=== PATIENT | female | born 1945 | race African-American/Black ===

== ENCOUNTER 2016-11-09 01:57 | Inpatient (IN) | payer OTHER ==
--- NOTE | 2016-11-09 02:18 | PDOC ---
History of Present Illness - General Chief Complaint: Nausea/Vomiting Stated Complaint: ABDOMINAL PAIN Time Seen by Provider: 11/09/16 02:06 - History of Present Illness Initial Comments: 11/09/16 02:37 Patient is a 71 year old female with a history of hypertension, hyperlipidemia , diabetes, lupus, GERD, and DVT who presents with acute onset of epigastric abdominal pain with associated nausea, vomiting and diarrhea. The patient reports acute onset of epigastric abdominal pain 1-2 hours ago which awoke her from sleep. She endorsed nausea and non-bilious, non-bloody vomiting as well as diarrhea en route to the ED. She states that she was previously feeling healthy prior to onset of symptoms this evening. She endorses chills, but denies SOB, chest pain, or changes with urination. Past History - Past Medical History Allergies/Adverse Reactions: Allergies Allergy/AdvReac Type Severity Reaction Status Date / Time prochlorperazine edisylate Allergy Intermediate tongue Verified 11/09/16 02:14 [From Compazine] gets heavy prochlorperazine maleate AdvReac Intermediate tongue Verified 11/09/16 02:14 [From Compazine] gets heavy Home Medications: Ambulatory Orders Aspirin [ASA -] 81 mg PO DAILY 05/14/16 Gabapentin 600 mg PO TID 05/14/16 Metformin HCl [Glucophage] 500 mg PO BID 05/14/16 Ondansetron [Zofran Odt -] 4 mg SL TID PRN #21 od.tablet 05/14/16 Oxycodone HCl 10 mg PO PRN 05/14/16 Valsartan [Diovan] 160 mg PO DAILY 05/14/16 Diabetes: Yes GI Disorders: Yes (gerd) HTN: Yes Hypercholesterolemia: Yes Suicide Attempt (Hx): No - Surgical History Orthopedic Surgery: (BILATERAL HIP REPLACEMENT RIGHT SHOULDER) - Immunization History Td Vaccination: (unknown) Immunization Up to Date: Yes - Psycho/Social/Smoking Cessation Hx Anxiety: No Suicidal Ideation: No Smoking Status: Yes Smoking History: Never smoked Years of Tobacco Use: 10 Have you smoked in the past 12 months: No Number of Cigarettes Smoked Daily: 0 If you are a former smoker, when did you quit?: yrs ago Cigars Per Day: 0 Information on smoking cessation initiated: No Hx Alcohol Use: No Drug/Substance Use Hx: No Review of Systems - Review of Systems Constitutional: Yes: Chills. No: Fever Respiratory: No: Cough, Shortness of Breath Cardiac (ROS): No: Chest Pain, Lightheadedness, Palpitations ABD/GI: Yes: Diarrhea, Nausea, Vomiting. No: Constipated : No: Burning, Dysuria Integumentary: No: Rash Neurological: No: Headache, Numbness, Tingling, Weakness *Physical Exam - Vital Signs Last Vital Signs Temp Pulse Resp BP Pulse Ox 98.1 F 101 H 14 142/90 100 11/09/16 02:14 11/09/16 02:14 11/09/16 02:14 11/09/16 02:14 11/09/16 02:14 - Physical Exam Comments: 11/09/16 03:22 General Appearance: Yes: Nourished, Moderate Distress HEENT: No Pharyngeal Erythema, Tonsillar Exudate, Tonsillar Erythema Respiratory/Chest: Lungs Clear, Normal Breath Sounds. No Crackles, Rales, Rhonchi, Wheezing Cardiovascular: Regular Rhythm, Regular Rate. No Murmur, Gallop/S3, Gallop/S4 Gastrointestinal/Abdominal: Normal Bowel Sounds, Soft, Diffuse tenderness to palpation worse in the epigastric and periumbilical regions. No Guarding, Rebound Extremity: Normal Capillary Refill Integumentary: Normal Color, Dry, Warm Neurologic: Fully Oriented, Alert, Normal Mood/Affect, Normal Response Heart Score/ECG Review #1 ECG reviewed & interpreted by me at: 03:32 (Tachycardic to 104. Possible atrial enlargement) General ECG Interpretation: Sinus Rhythm, Normal Intervals, No acute ischemic changes Compared to previous ECG there are: No significant change (05/14/16) ED Treatment Course - LABORATORY CBC & Chemistry Diagram: 11/09/16 02:44 11/09/16 02:44 Medical Decision Making - Medical Decision Making 11/09/16 03:23 Patient is a 71 year old female with a history of hypertension, hyperlipidemia , diabetes, lupus, GERD, and DVT who presents with acute onset of epigastric abdominal pain with associated nausea, vomiting and diarrhea. Differential includes but is not limited to: Sepsis, Perforation, AAA, Pancreatitis, Cholecystitis, metabolic derangement. We will obtain a cbc, cmp, lipase, lactate, blood cultures, UA, urine cultures, troponin, EKG as well as a abdomen/ pelvis CT to evaluate for the etiology of her pain. 11/09/16 04:45 Cbc is unremarkable. Lipase, troponin, EKG are unremarkable. CMP demonstrates a hyponatremia to 125 and a lactate of 3.4 likely due to dehydration. CT chest/ abdomen pelvis preliminarily read by jd edwards consultant radiologist pending official read as: Chest: Slight ectasia of the proximal ascending thoracic aorta at 4.1 cm. No dissection. Lungs are clear of acute disease. Abdomen and pelvis: Negative for abdominal aortic aneurysm or dissection. Atherosclerotic changes of the abdominal aorta are noted. No bowel obstruction free air or free fluid. Negative for colitis. Difficult to evaluate the sigmoid for diverticulitis because it is partially obscured by metal artifact from hip prosthesis. Renal cysts are noted. There is moderate dilatation of the left renal collecting system and ureter. I cannot find a source of obstruction. However, the distal ureters and ureterovesicular junction are obscured by heavy artifact from metallic hip prosthesis. Therefore I cannot evaluate for distal obstructing ureteral stones. There are nonobstructing bilateral renal stones. Cholelithiasis noted. Normal liver. Normal spleen. Normal pancreas. Normal adrenal glands. THIS DOCUMENT HAS BEEN ELECTRONICALLY SIGNED Marck Del Rio MD 11/09/2016 04:34 EST 11/09/16 05:37 We discussed the case with the hospitalist team and we believe that she requires admission for further management. The hospitalist team agreed to accept the patient under Dr. Canela for observation. *DC/Admit/Observation/Transfer Diagnosis at time of Disposition: Hyponatremia, Dehydration - Discharge Dispostion Condition at time of disposition: Guarded Admit: Yes - Referrals Referrals: Gina Fofana MD [Primary Care Provider] -
[2016-11-09] MEDS ORDERED: morphine CARPU-JECT 4 MG/1 ML DISP.SYRIN IVPUSH ONE (02:41)
[2016-11-09] MEDS ORDERED: SODIUM CHLORIDE 1,000 ML IV STA ×2 (02:45→04:25)
[2016-11-09] MEDS ORDERED: ACETAMINOPHEN 1000 MG/100 ML VIAL (NON FORMULARY) IVPB ONE (02:45)
[2016-11-09] MEDS ORDERED: ACETAMINOPHEN INJECTION 100 ML IVPB ONE (02:54)
[2016-11-09] MEDS ORDERED: morphine CARPU-JECT 4 MG/1 ML DISP.SYRIN ONE (02:54)
[2016-11-09 02:57] LABS: MCH 30.9 pg (25.7-33.7); MCHC 35.2 g/dl (32.0-36.0); MEAN CELL VOLUME 87.9 fl (80-96); MEAN PLT VOLUME 7.3 fl (7.5-11.1); PLATELET COUNT 646 K/MM3 (134-434); RDW 16.1 % (11.6-15.6); WHITE BLOOD COUNT 9.1 K/mm3 (4.0-10.0)
--- NOTE | 2016-11-09 02:59 | PDOC ---
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 Patient reports she woke up from sleep with intense 10/10 abdominal pain. She reports she has never experienced this type of pain before. Patient states experiencing nausea and vomiting with episodes of diarrhea enroute to the ED secondary to the abdominal pain. She reports subjective fever and chills secondary to abdominal pain. Denies bloody vomit, dysuria, hematuria. Denies chest pain, SOB, urination changes. Denies any recent travel, contact with sick individuals. Allergies prochlorperazine edisylate (from compazine), prochlorperazine maleate (from compazine). - Medical Decision Making 11/09/16 03:08 Documentation prepared by Mitul Contreras, acting as biomedical engineering technologist for Julius Knox MD. <Mitul Contreras - Last Filed: 11/09/16 03:08> - Resident Resident Name: Zbigniew Gee - ED Attending Attestation I have performed the following: I have examined & evaluated the patient, The case was reviewed & discussed with the resident, I agree w/resident's findings & plan, Exceptions are as noted - Physicial Exam PE: 11/09/16 03:20 *Physical Exam General Appearance: Yes: Appropriately Dressed. Moderate distress No: Intoxicated HEENT: positive: EOMI, HOLGER, Normal ENT Inspection, Normal Voice, TMs Normal, Pharynx Normal. negative: Pale Conjunctivae, Photophobia, Scleral Icterus (R), Scleral Icterus (L) Neck: positive: Trachea midline, Normal Thyroid, Supple. negative: Tender, Rigid, Carotid bruit, Stridor, Lymphadenopathy (R), Lymphadenopathy (L), Thyromegaly Respiratory/Chest: positive: Lungs Clear, Normal Breath Sounds. negative: Chest Tender, Respiratory Distress, Accessory Muscle Use, Labored Respiration, RES, Crackles, Rales, Rhonchi, Stridor, Wheezing, Dullness Cardiovascular: positive: Regular Rhythm, Regular Rate, S1, S2. negative: Edema , JVD, Murmur, Bradycardia, Tachycardia Vascular Pulses: Dorsalis-Pedis (R): 2+, Doralis-Pedis (L): 2+ Gastrointestinal/Abdominal: positive: Normal Bowel Sounds, obese Soft. moderate epigastric and periumbilical tendernes mild guarding negative: Organomegaly, Pulsatile Mass, Increased Bowel Sounds, Decreased BS, Rebound, Hernia, Hepatomegaly, Spleenomegaly Lymphatic: negative: Adenopathy, Tenderness Musculoskeletal: positive: Normal Inspection. negative: CVA Tenderness, Decreased Range of Motion Extremity: positive: Normal Capillary Refill, Normal Inspection, Normal Range of Motion, Pelvis Stable. negative: Tender, Pedal Edema, Swelling, Erythema Integumentary: positive: Normal Color, Dry, Warm. 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 negative: EOM Palsy, Facial Droop, Sensory Deficit <Julius Knox - Last Filed: 11/09/16 03:24>
[2016-11-09] MEDS ORDERED: HYDROmorphone HCL CARPU-JECT 1 MG/1 ML DISP.SYRIN IVPUSH ONE ×2 (03:19→05:41)
[2016-11-09 03:21] LABS: VENOUS BLOOD GAS HCO3 22.3 meq/L (19-25); VENOUS PH 7.5 (7.32-7.42)
[2016-11-09] MEDS ORDERED: HYDROmorphone HCL CARPU-JECT 1 MG/1 ML DISP.SYRIN ONE ×2 (03:21→07:00)
[2016-11-09 03:26] LABS: ALBUMIN 3.2 g/dl (3.4-5.0); ANION GAP 17 (8-16); BILIRUBIN,TOTAL 0.5 mg/dL (0.2-1.0); CALCIUM 9.4 mg/dL (8.5-10.1); CO2 20 mmol/L (21-32); CREATININE 0.7 mg/dL (0.55-1.02); GLUCOSE,RANDOM 140 mg/dL (74-106); SGPT/ALT 34 U/L (12-78); TOT PROT 7.5 g/dl (6.4-8.2)
[2016-11-09 03:29] LABS: ALK PHOS 172 U/L (45-117); TROPONIN I 0.02 ng/ml (0.00-0.05)
[2016-11-09 03:31] LABS: CPK 80 IU/L (26-192); SGOT/AST 50 U/L (15-37)
[2016-11-09 03:42] LABS: PLATELET ESTIMATE INCREASED (NORMAL)
[2016-11-09 03:43] LABS: PLATELET COMMENT2 NO CLOTTING DETECTED; PLATELET COMMENT3 FEW LARGE PLTS
[2016-11-09] MEDS ORDERED: METOCLOPRAMIDE HCL INJECTION 10 MG/2 ML VIAL IVPUSH ONE ×2 (04:40→05:42)
[2016-11-09 05:01] LABS: URINE APPEARANCE CLEAR; URINE BILIRUBIN NEGATIVE (NEGATIVE); URINE BLOOD NEGATIVE (NEGATIVE); URINE COLOR STRAW; URINE GLUCOSE (UA) NEGATIVE (NEGATIVE); URINE KETONE NEGATIVE (NEGATIVE); URINE LEUK ESTERASE NEGATIVE (NEGATIVE); URINE NITRITE NEGATIVE (NEGATIVE); URINE UROBILINOGEN NEGATIVE mg/dL (0.2-1.0)
[2016-11-09 05:09] LABS: URINE PROTEIN 2+ (NEGATIVE)
[2016-11-09 05:10] LABS: URINE BACTERIA RARE /hpf (NONE SEEN); URINE RBC <1 /hpf (0-3)
[2016-11-09] MEDS ORDERED: METOCLOPRAMIDE HCL INJECTION 10 MG/2 ML VIAL IVPB PRN (06:21)
[2016-11-09] MEDS ORDERED: morphine CARPU-JECT 2 MG/1 ML DISP.SYRIN IVPUSH ONE (06:29)
[2016-11-09] MEDS ORDERED: SODIUM CHLORIDE 1,000 ML IV SCH (06:30)
--- NOTE | 2016-11-09 06:33 | HP ---
CHIEF COMPLAINT: Abdominal Pain PCP: Dr. 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 She states that at 12AM she was sitting in her chair, and suddenly felt sharp 10/10 nonradiating epigastric pain with associated NBNB emesis [id number]. Her emetus is liquid, not solid food. She has associated diarrhea [id number] , brown, soft stools, non-watery. She states that she cooks her own food, and does not recall eating anything out of the ordinary. She is not around small children or around sick contacts. Denies recent travel. She has subjective fevers and chills. Denies CP, SOB, headache, paresthesias, dysuria. 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 PAST SURGICAL HISTORY: Hip replacement Social History: Smoking: Denies Alcohol: Denies Drugs: Denies Family History: Noncontributory Allergies prochlorperazine edisylate [From Compazine] Allergy (Intermediate, Verified 09/18 02:14) tongue gets heavy REVIEW OF SYSTEMS CONSTITUTIONAL: Absent: diaphoresis, generalized weakness, malaise, loss of appetite, weight change Present: fevers, chills HEENT: Absent: rhinorrhea, nasal congestion, throat pain, throat swelling, difficulty swallowing, mouth swelling, ear pain, eye pain, visual changes CARDIOVASCULAR: Absent: chest pain, syncope, palpitations, irregular heart rate, lightheadedness , peripheral edema RESPIRATORY: Absent: cough, shortness of breath, dyspnea with exertion, orthopnea, wheezing, stridor, hemoptysis GASTROINTESTINAL: Absent: abdominal distension, constipation, melena, hematochezia Present: abdominal pain, nausea, vomiting, diarrhea GENITOURINARY: Absent: dysuria, frequency, urgency, hesitancy, hematuria, flank pain, genital pain MUSCULOSKELETAL: Absent: myalgia, arthralgia, joint swelling, back pain, neck pain SKIN: Absent: rash, itching, pallor HEMATOLOGIC/IMMUNOLOGIC: Absent: easy bleeding, easy bruising, lymphadenopathy, frequent infections ENDOCRINE: Absent: unexplained weight gain, unexplained weight loss, heat intolerance, cold intolerance NEUROLOGIC: Absent: headache, focal weakness or paresthesias, dizziness, unsteady gait, seizure, mental status changes, bladder or bowel incontinence PSYCHIATRIC: Absent: anxiety, depression, suicidal or homicidal ideation, hallucinations. PHYSICAL EXAMINATION Vital Signs - 24 hr 11/09/16 02:14 Temperature 98.1 F Pulse Rate 101 H Respiratory 14 Rate Blood Pressure 142/90 O2 Sat by Pulse 100 Oximetry (%) GEN: AAOx3, under blankets, chills/rigors HEENT: PERRLA, EOMi, dry mucous membranes CV: S1, S2, RRR LUNG: CTABL ABD: Soft, TTP in Epigastric region, nontender other regions MSK: No edema, no erythema NEURO: CN 2-12 grossly intact, MSK 5/5, No sensation deficits Laboratory Results - last 24 hr 11/09/16 11/09/16 11/09/16 02:44 02:44 02:44 WBC 9.1 RBC 3.68 Hgb 11.4 D Hct 32.3 L MCV 87.9 MCH 30.9 MCHC 35.2 RDW 16.1 H D Plt Count 646 H D MPV 7.3 L Neutrophils % Y Lymphocytes % Y Platelet Estimate Increased Platelet Comment No clotting detected INR Cancelled PTT (Actin FS) Cancelled VBG pH POC VBG pCO2 POC VBG pO2 Mixed VBG HCO3 Sodium Cancelled Potassium Cancelled Chloride Cancelled Carbon Dioxide Cancelled Anion Gap Cancelled BUN Cancelled Creatinine Cancelled Creat Clearance w eGFR Cancelled Random Glucose Cancelled Lactic Acid Calcium Cancelled Total Bilirubin Cancelled AST Cancelled ALT Cancelled Alkaline Phosphatase Cancelled Creatine Kinase Cancelled Troponin I Cancelled Total Protein Cancelled Albumin Cancelled Lipase 96 Urine Color Urine Appearance Urine pH Urine Protein Urine Glucose (UA) Urine Ketones Urine Blood Urine Nitrite Urine Bilirubin Urine Urobilinogen Ur Leukocyte Esterase Urine RBC Urine WBC Ur Epithelial Cells Urine Bacteria Anti-A Titer Blood Type Antibody Screen Spec Expiration Date 11/09/16 11/09/16 11/09/16 02:44 02:44 03:13 WBC RBC Hgb Hct MCV MCH MCHC RDW Plt Count MPV Neutrophils % Lymphocytes % Platelet Estimate Platelet Comment INR PTT (Actin FS) VBG pH POC VBG pCO2 POC VBG pO2 Mixed VBG HCO3 Sodium 125 L Potassium 3.6 Chloride 88 L D Carbon Dioxide 20 L D Anion Gap 17 H BUN 13 D Creatinine 0.7 D Creat Clearance w eGFR > 60 Random Glucose 140 H D Lactic Acid 3.4 H* Calcium 9.4 Total Bilirubin 0.5 D AST 50 H D ALT 34 D Alkaline Phosphatase 172 H D Creatine Kinase 80 Troponin I 0.02 Total Protein 7.5 Albumin 3.2 L Lipase Urine Color Urine Appearance Urine pH Urine Protein Urine Glucose (UA) Urine Ketones Urine Blood Urine Nitrite Urine Bilirubin Urine Urobilinogen Ur Leukocyte Esterase Urine RBC Urine WBC Ur Epithelial Cells Urine Bacteria Anti-A Titer Cancelled Blood Type Cancelled Antibody Screen Cancelled Spec Expiration Date Cancelled 11/09/16 11/09/16 03:20 04:50 WBC RBC Hgb Hct MCV MCH MCHC RDW Plt Count MPV Neutrophils % Lymphocytes % Platelet Estimate Platelet Comment INR PTT (Actin FS) VBG pH 7.50 H POC VBG pCO2 28.6 L POC VBG pO2 26.3 L Mixed VBG HCO3 22.3 Sodium Potassium Chloride Carbon Dioxide Anion Gap BUN Creatinine Creat Clearance w eGFR Random Glucose Lactic Acid Calcium Total Bilirubin AST ALT Alkaline Phosphatase Creatine Kinase Troponin I Total Protein Albumin Lipase Urine Color Straw Urine Appearance Clear Urine pH 6.0 Urine Protein 2+ H Urine Glucose (UA) Negative Urine Ketones Negative Urine Blood Negative Urine Nitrite Negative Urine Bilirubin Negative Urine Urobilinogen Negative Ur Leukocyte Esterase Negative Urine RBC <1 Urine WBC None Ur Epithelial Cells Rare Urine Bacteria Rare Anti-A Titer Blood Type Antibody Screen Spec Expiration Date Home Medication List Medication Instructions Recorded Confirmed Type Aspirin [ASA -] 81 mg PO DAILY 05/14/16 11/09/16 History Gabapentin 600 mg PO TID 05/14/16 11/09/16 History Metformin HCl [Glucophage] 500 mg PO BID 05/14/16 11/09/16 History Oxycodone HCl 10 mg PO PRN 05/14/16 11/09/16 History Valsartan [Diovan] 160 mg PO DAILY 05/14/16 11/09/16 History Active Medications Generic Name Dose Route Start Last Admin Trade Name Freq PRN Reason Stop Dose Admin Acetaminophen 650 mg 11/09/16 06:29 Tylenol - PO Q6H PRN PAIN Aspirin 81 mg 11/09/16 10:00 Asa - PO DAILY ELIDA Gabapentin 600 mg 11/09/16 06:30 11/09/16 07:47 Neurontin - PO 600 mg TID ELIDA Administration Heparin Sodium (Porcine) 5,000 unit 11/09/16 06:45 11/09/16 07:47 Heparin - SQ 5,000 unit TID ELIDA Administration Sodium Chloride 1,000 mls @ 100 mls/hr 11/09/16 06:30 11/09/16 06:54 Normal Saline - IV 100 mls/hr ASDIR ELIDA Administration Insulin Aspart 1 vial 11/09/16 07:00 11/09/16 07:30 Novolog Vial Sliding Scale - SQ Not Given ACHS [facility] Protocol Metoclopramide HCl 10 mg 11/09/16 06:21 Reglan Injection - IVPB Q6H PRN NAUSEA AND/OR VOMITING Valsartan 160 mg 11/09/16 10:00 Diovan - PO DAILY [facility] ASSESSMENT/PLAN: Pt is a 71yo F with hx of DM2, HTN, HLD, GERD, who presented with acute onset NBNB emesis and diarrhea, likely viral gastroenteritis. # Epigastric Pain - likely secondary to viral gastroenteritis - CT abdomen shows gallstones, non-obstructive kidney stones, but no acute pathology - pending official read - Lipase negative, no pancreatic inflammation on CT - IVNS @ 100cc/hr - no prior echo in chart, no hx of CHF - Pain control w/ Tylenol 650mg Q6 PRN - Antiemetic IV Reglan 10mg PRN - EKG in ER shows QTc 483, repeat EKG pending , allergy to Compazine - Clear liquid diet - Pending Blood cx + Ucx # Dehydration - secondary to emesis - Continue IV fluids # Diarrhea - likely secondary to gastroenteritis - Stool culture and O&P # Lactic Acidosis - likely secondary to dehydration - Continue IV fluids - Stat lactic acid 6am # Hypochloremic Hyponatremia - hypovolemic, likely secondary to dehydration + emesis - Continue IV fluids - BMP now, continue to monitor # Respiratory Alkalosis - likely secondary to pain - Detected on VBG - Pain control w/ Tylenol # Hx of DM2 - Held home Metformin due to LA - BGM + SSI ACHS - Continue Gabapentin # Hx of HTN - Continue Valsartan # Hx of CAD - Continue ASA # FEN - Fluids: IVNS @ 100cc/hr - Electrolytes: Monitor - Nutrition: Clear Liquids - assess if pt can tolerate # Prophylaxis - DVT: Heparin SQ TID - GI: Not indicated - Deconditioning: PT ordered # Dispo - Med/Surg admission - Monitor on IVF Case was discussed with Dr. Canela and Dr. Padmini Gandhi MD - PGY1 Internal Medicine Visit type - Emergency Visit Emergency Visit: Yes ED Registration Date: 11/09/16 Care time: The patient presented to the Emergency Department on the above date and was hospitalized for further evaluation of their emergent condition. - New Patient This patient is new to me today: Yes Date on this admission: 11/09/16 - Critical Care Critical Care patient: No
--- NOTE | 2016-11-09 06:55 | PN ---
Teaching Attending Note Name of Resident: Mary Gandhi ATTENDING PHYSICIAN STATEMENT I saw and evaluated the patient. I reviewed the resident's note and discussed the case with the resident. I agree with the resident's findings and plan as documented. SUBJECTIVE: 71 year old femal BB family due to 1 day history of nausea, vomiting and diarrhea associated with epigastric pain. She was in normal state of health prior to today. Complaining of epigastric pain . PMH DVT DM HTN SLE Lupus Nephritis Pneumonia Hyponatremia Home Medication List Medication Instructions Recorded Confirmed Type Aspirin [ASA -] 81 mg PO DAILY 05/14/16 11/09/16 History Gabapentin 600 mg PO TID 05/14/16 11/09/16 History Metformin HCl [Glucophage] 500 mg PO BID 05/14/16 11/09/16 History Oxycodone HCl 10 mg PO PRN 05/14/16 11/09/16 History Valsartan [Diovan] 160 mg PO DAILY 05/14/16 11/09/16 History Active Medications Generic Name Dose Route Start Last Admin Trade Name Freq PRN Reason Stop Dose Admin Acetaminophen 650 mg 11/09/16 06:29 Tylenol - PO Q6H PRN PAIN Aspirin 81 mg 11/09/16 10:00 Asa - PO DAILY [facility] Gabapentin 600 mg 11/09/16 06:30 Neurontin - PO TID [facility] Heparin Sodium (Porcine) 5,000 unit 11/09/16 06:45 Heparin - SQ TID [facility] Sodium Chloride 1,000 mls @ 100 mls/hr 11/09/16 06:30 11/09/16 06:54 Normal Saline - IV 100 mls/hr ASDIR [facility] Administration Insulin Aspart 1 vial 11/09/16 07:00 Novolog Vial Sliding Scale - SQ ACHS [facility] Protocol Metoclopramide HCl 10 mg 11/09/16 06:21 Reglan Injection - IVPB Q6H PRN NAUSEA AND/OR VOMITING Valsartan 160 mg 11/09/16 10:00 Diovan - PO DAILY [facility] OBJECTIVE: Vital Signs Temperature 97.7 F 11/09/16 06:40 Pulse Rate 92 H 11/09/16 06:40 Respiratory Rate 19 11/09/16 06:40 Blood Pressure 134/82 11/09/16 06:40 O2 Sat by Pulse Oximetry (%) 98 11/09/16 06:40 HEENT perrla, dry mucous membranes CVS S1 S2 wnl ABD soft NT EXT no edema CBC, BMP 11/09/16 02:44 11/09/16 02:44 Abnormal Lab Results 11/09/16 11/09/16 11/09/16 02:44 02:44 03:13 Hct 32.3 L RDW 16.1 H D Plt Count 646 H D MPV 7.3 L VBG pH POC VBG pCO2 POC VBG pO2 Sodium 125 L Chloride 88 L D Carbon Dioxide 20 L D Anion Gap 17 H Random Glucose 140 H D Lactic Acid 3.4 H* AST 50 H D Alkaline Phosphatase 172 H D Albumin 3.2 L Urine Protein 11/09/16 11/09/16 03:20 04:50 Hct RDW Plt Count MPV VBG pH 7.50 H POC VBG pCO2 28.6 L POC VBG pO2 26.3 L Sodium Chloride Carbon Dioxide Anion Gap Random Glucose Lactic Acid AST Alkaline Phosphatase Albumin Urine Protein 2+ H ASSESSMENT 1. Acute Gastroenteritis - possibly viral 2. Hyponatremia - hypovolemic, possibly due to to dehydration and gastroenteritis 3. DM -stable 4. Prolonged QT 5. Elevated lactate - likely due to dehydration AND PLAN: 1. IVF- AT 100CC/HR 2. Monitor Na 3. STool studies 4. Reglan 5. DVT PPX - heparin SC
[2016-11-09] MEDS ORDERED: METOCLOPRAMIDE HCL INJECTION 10 MG/2 ML VIAL ONE (07:00)
[2016-11-09] MEDS: INSULIN SLIDING SCALE (NOVOLOG) 1 VIAL SQ SCH ×4 (07:30→22:55)
[2016-11-09] MEDS ORDERED: GABAPENTIN 100 MG CAPSULE (FP) ONE (07:41)
[2016-11-09] MEDS ORDERED: HEPARIN NA (PORCINE) 5,000 UNITS/ML 1ML VIAL ONE (07:41)
[2016-11-09] MEDS: GABAPENTIN 300 MG CAPSULE (FP) PO SCH ×3 (07:47→22:43)
[2016-11-09] MEDS: HEPARIN NA (PORCINE) 5,000 UNITS/ML 1ML VIAL SQ SCH ×3 (07:47→22:43)
[2016-11-09] MEDS: ASPIRIN 81 MG CHEWABLE TABLETS PO SCH (10:38)
[2016-11-09] MEDS: VALSARTAN 160 MG TABLET (UD) PO SCH (10:38)
[2016-11-09] MEDS ORDERED: ACETAMINOPHEN 325 MG TABLET (FP) ONE (10:40)
--- NOTE | 2016-11-09 12:16 | EKG ---
Test Reason : Blood Pressure : / mmHG Vent. 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
[2016-11-09 12:32] LABS: ANION GAP 14 (8-16); CALCIUM 8.7 mg/dL (8.5-10.1); CO2 23 mmol/L (21-32); CREATININE 0.5 mg/dL (0.55-1.02); GLUCOSE,RANDOM 104 mg/dL (74-106)
[2016-11-09] MEDS ORDERED: DEXTROSE 5%-NORMAL SALINE 1,000 ML with POTASSIUM CHLORIDE 20 MEQ IVPB SCH ×2 (13:30→19:54)
[2016-11-09] MEDS ORDERED: DEXTROSE 5%-NORMAL SALINE 1,000 ML IV SCH ×2 (13:30→20:00)
[2016-11-09] MEDS: KCL 10 MEQ IVPB 100 ML IVPB SCH ×2 (14:34→16:27)
--- NOTE | 2016-11-09 15:57 | PN ---
Physical Exam: SUBJECTIVE: Patient seen and examined. She feels a little better today, but still complains of nausea and NBNB vomiting. no sick contacts, no recent changes in diet. OBJECTIVE: Vital Signs Period Temp Pulse Resp BP Sys/Guardado Pulse Ox Last 24 Hr 97.7 F-98.9 F 92-100 16-19 134-180/82-108 98-98 GENERAL: The patient is awake, alert, and fully oriented, in no acute distress. HEAD: Normal with no signs of trauma. EYES: PERRL, extraocular movements intact, sclera anicteric, conjunctiva clear. No ptosis. NECK: Trachea midline, full range of motion, supple. LUNGS: Breath sounds equal, clear to auscultation bilaterally, no wheezes, no crackles, no accessory muscle use. HEART: Regular rate and rhythm, S1, S2 without murmur, rub or gallop. ABDOMEN: Soft, mild tenderness to palpation in epigastrium, nondistended, normoactive bowel sounds, no guarding, no rebound. Feeling of "pressure" upon palpation of the left quadrants EXTREMITIES: 2+ pulses, warm, well-perfused, no edema. NEUROLOGICAL: Cranial nerves II through X grossly intact. Normal speech, gait not observed. 5/5 strength in all extremities PSYCH: Normal mood, normal affect. SKIN: Warm, dry, normal turgor, no rashes or lesions noted Laboratory Results - last 24 hr 11/09/16 11/09/16 11/09/16 06:35 11:25 11:29 INR PTT (Actin FS) Sodium 130 L Potassium 2.9 L* Chloride 93 L Carbon Dioxide 23 Anion Gap 14 BUN 9 D Creatinine 0.5 L D POC Glucometer Random Glucose 104 D Lactic Acid 1.3 Calcium 8.7 Blood Type O POSITIVE Antibody Screen 11/09/16 11/09/16 11/09/16 11:29 11:29 11:29 INR Cancelled PTT (Actin FS) Cancelled Sodium Potassium Chloride Carbon Dioxide Anion Gap BUN Creatinine POC Glucometer Random Glucose Lactic Acid Calcium Blood Type O POSITIVE Antibody Screen Negative 11/09/16 11:45 INR PTT (Actin FS) Sodium Potassium Chloride Carbon Dioxide Anion Gap BUN Creatinine POC Glucometer [id number] Random Glucose Lactic Acid Calcium Blood Type Antibody Screen Active Medications Generic Name Dose Route Start Last Admin Trade Name Freq PRN Reason Stop Dose Admin Acetaminophen 650 mg 11/09/16 06:29 Tylenol - PO Q6H PRN PAIN Aspirin 81 mg 11/09/16 10:00 11/09/16 10:38 Asa - PO 81 mg DAILY ELIDA Administration Gabapentin 600 mg 11/09/16 06:30 11/09/16 14:19 Neurontin - PO Not Given TID ELIDA Heparin Sodium (Porcine) 5,000 unit 11/09/16 06:45 11/09/16 14:34 Heparin - SQ 5,000 unit TID ELIDA Administration Sodium Chloride 1,000 mls @ 100 mls/hr 11/09/16 06:30 11/09/16 06:54 Normal Saline - IV 100 mls/hr ASDIR ELIDA Administration Potassium Chloride 20 meq/ 1,010 mls @ 100 mls/hr 11/09/16 13:30 11/09/16 14:34 Dextrose/Sodium Chloride IVPB 100 mls/hr ASDIR ELIDA Administration Potassium Chloride 100 mls @ 100 mls/hr 11/09/16 14:00 11/09/16 14:34 Potassium Chloride 10 Meq Premix Ivpb - IVPB 11/09/16 15:59 100 mls/hr Q60M ELIDA Administration Insulin Aspart 1 vial 11/09/16 07:00 11/09/16 11:46 Novolog Vial Sliding Scale - SQ Not Given ACHS REPLACED BY [facility] Protocol Metoclopramide HCl 10 mg 11/09/16 06:21 Reglan Injection - IVPB Q6H PRN NAUSEA AND/OR VOMITING Valsartan 160 mg 11/09/16 10:00 11/09/16 10:38 Diovan - PO 160 mg DAILY ELIDA Administration ASSESSMENT/PLAN: 71yo F with PMH DM, HTN and SLE presented to the ER with NBNB vomiting and diarrhea #Acute AG metabolic acidosis likely 2/2 lactic acidosis 2/2 metformin vs presumed ketosis. -started on IVF -Lactic acid 3.4 on admission; repeat 1.3 -holding metformin -cont hydration until can tolerate po. -Reglan for nausea -pain control with tylenol #Hydronephrosis 2/2 Nephrolithasis with possible obstruction -patient without symptoms at this time -urology consult #Hypokalemia likely 2/2 vomiting -40 KCl total given. repeat K 3.5 #Hyponatremia likely 2/2 vomiting. -Na 125 on admission. Repeat 130. -D5 NS @100 #Vomiting/diarrhea 2/2 AG metabolic acidosis vs gastroenteritis vs foodborne pathogen. -CT negative for colitis. -f/u ucx and bcx #HTN -continue home medications. -valsartan #SLE -currently not on any medications #Prophy -heparin sq 5ku #dispo -admitted for nausea and vomiting causing multiple electrolyte abnormalities Problem List - Problems (1) Dehydration Code(s): E86.0 - DEHYDRATION (2) Hyponatremia Code(s): E87.1 - HYPO-OSMOLALITY AND HYPONATREMIA (3) Nausea and vomiting Code(s): R11.2 - NAUSEA WITH VOMITING, UNSPECIFIED Qualifiers: Vomiting type: unspecified Vomiting Intractability: non-intractable Qualified Code(s): R11.2 - Nausea with vomiting, unspecified (4) Hypokalemia Code(s): E87.6 - HYPOKALEMIA Visit type - Emergency Visit Emergency Visit: Yes ED Registration Date: 11/09/16 Care time: The patient presented to the Emergency Department on the above date and was hospitalized for further evaluation of their emergent condition. - New Patient This patient is new to me today: Yes Date on this admission: 11/09/16 - Critical Care Critical Care patient: No
--- NOTE | 2016-11-09 16:08 | PN ---
Teaching Attending Note Name of Resident: Rusty Kevin ATTENDING PHYSICIAN STATEMENT I saw and evaluated the patient. I reviewed the resident's note and discussed the case with the resident. I agree with the resident's findings and plan as documented. SUBJECTIVE:no vomiting or loose BM since last night. feels slightly improved but lethargic. states she last ate yesterday pasta salad with mayonaise which she made herself. no one else ate the food and is not aware if any other sick contacts in the home. denies CP, SOB, fever, chills. no recent changes to medications. claims medication compliance OBJECTIVE: Last Vital Signs Temp Pulse Resp BP Pulse Ox 98.9 F 100 H 16 150/90 98 11/09/16 10:38 11/09/16 15:21 11/09/16 15:21 11/09/16 15:21 11/09/16 15:21 General NAD CV S1 S2 RRR no murmur/rub/gallop LUngs CTA B/L anteriorly Abdomen soft +suprapubic tenderness no rebound or guarding, no CVA tenderness extremities no pain on flexion/extension of L hip ASSESSMENT AND PLAN: 71yo F with PMH DM, HTN and SLE presented to the ER with vomiting and diarrhea 1. Acute AG metabolic acidosis- likely due to lactic acidosis from metformin vs presumed ketosis. started on IVF and repeated labs shows resolution of lactic acidosis and metabolic acidosis. hold metformin. cont hydration until can tolerate po. nausea and pain control 2. Nephrolithasis with hydronephrosis- pt does not have pain suggestive of nephrolithasis. urology consult to assess if intervention required at this time 3. Hypokalemia- due to nausea/vomiting. KCl riders. repeat K 4. Hyponatremia- due to vomiting. imrpoved. cont IVF 5. vomiting/diarrhea- can be due to AG metabolic acidosis and less likely gastroenteritis or foodborne pathogen. CT negative for colitis. will hold off starting abx at this time. Cx sent. f/u 6. HTN- re-start home medications. valsartan 7. SLE- currently not on any medications. no steroid therapy. 8. DVT ppx -hep sq
[2016-11-09] MEDS ORDERED: PT OWN MED DRAWER 7, Y5N ONE (16:10)
[2016-11-09 16:13] VITALS: BMI 24.1
--- NOTE | 2016-11-09 20:34 | CON.GU ---
Consult - History of Present Illness History of Present Illness: 71 yo female admitted with mid abdominal pain, N/V. No flank pain, no hematuria , no voiding symptoms. No prior history. CT scan limited by metallic hardware shows left hydronephrosis and left pelvic side wall fluid collection. UA is negative - Past Medical History Cardio/Vascular: Yes: HTN Gastrointestinal: Yes: GERD. No: Constipation Renal/: Yes: Other (PROTEINURIA) ...: No Rheumatology: Yes: Lupus Endocrine: Yes: Diabetes Mellitus - Alcohol/Substance Use Hx Alcohol Use: No - Smoking History Smoking history: Never smoked Have you smoked in the past 12 months: No Aproximately how many cigarettes per day: 0 If you are a former smoker, when did you quit?: yrs ago - Social History History of Recent Travel: No Home Medications - Allergies Allergies/Adverse Reactions: Allergies Allergy/AdvReac Type Severity Reaction Status Date / Time prochlorperazine edisylate Allergy Intermediate tongue Verified 11/09/16 02:14 [From Automileazine] gets heavy prochlorperazine maleate AdvReac Intermediate tongue Verified 11/09/16 02:14 [From Automileazine] gets heavy - Home Medications Home Medications: Ambulatory Orders Aspirin [ASA -] 81 mg PO DAILY 05/14/16 Gabapentin 600 mg PO TID 05/14/16 Metformin HCl [Glucophage] 500 mg PO BID 05/14/16 Ondansetron [Zofran Odt -] 4 mg SL TID PRN #21 od.tablet 05/14/16 Oxycodone HCl 10 mg PO PRN 05/14/16 Valsartan [Diovan] 160 mg PO DAILY 05/14/16 Physical Exam- Vital Signs: Vital Signs Temperature 100.2 F H 11/09/16 18:00 Pulse Rate 107 H 11/09/16 18:00 Respiratory Rate 20 11/09/16 19:59 Blood Pressure 151/92 11/09/16 18:00 O2 Sat by Pulse Oximetry (%) 97 11/09/16 19:59 Renal/: Yes: Other (no CVAT) Labs: CBC, BMP 11/09/16 16:45 Imaging - Results Cat Scan: Image Reviewed Problem List - Problems (1) Hydronephrosis, left Assessment/Plan: etiology of left hydro unclear but likely related to left pelvic side wall collection of unclear etiology. Since no flank pain, normal UA and creatinine, no need for immediate intervention Code(s): N13.30 - UNSPECIFIED HYDRONEPHROSIS
[2016-11-09] MEDS: ACETAMINOPHEN 325 MG TABLET (FP) PO PRN (22:44)
[2016-11-10] MEDS ORDERED: DEXTROSE 5%-NORMAL SALINE 1,000 ML IV SCH ×2 (06:00→11:17)
[2016-11-10] MEDS: HEPARIN NA (PORCINE) 5,000 UNITS/ML 1ML VIAL SQ SCH ×3 (06:17→23:47)
[2016-11-10] MEDS: GABAPENTIN 300 MG CAPSULE (FP) PO SCH ×3 (06:17→22:47)
[2016-11-10 07:22] LABS: MCH 29.6 pg (25.7-33.7); MCHC 33.8 g/dl (32.0-36.0); MEAN CELL VOLUME 87.6 fl (80-96); MEAN PLT VOLUME 6.8 fl (7.5-11.1); PLATELET COUNT 532 K/MM3 (134-434); RDW 15.8 % (11.6-15.6); WHITE BLOOD COUNT 8.2 K/mm3 (4.0-10.0)
[2016-11-10] MEDS: INSULIN SLIDING SCALE (NOVOLOG) 1 VIAL SQ SCH ×4 (07:47→22:47)
[2016-11-10 07:48] LABS: ALBUMIN 2.5 g/dl (3.4-5.0); ANION GAP 11 (8-16); CALCIUM 8.8 mg/dL (8.5-10.1); CO2 22 mmol/L (21-32); MAGNESIUM 1.2 mg/dL (1.8-2.4)
[2016-11-10 07:53] LABS: ALK PHOS 140 U/L (45-117); BILIRUBIN,TOTAL 0.4 mg/dL (0.2-1.0); CREATININE 0.4 mg/dL (0.55-1.02); GLUCOSE,RANDOM 127 mg/dL (74-106); PHOSPHOROUS 2.2 mg/dL (2.5-4.9); SGOT/AST 63 U/L (15-37); SGPT/ALT 49 U/L (12-78); TOT PROT 6.3 g/dl (6.4-8.2)
[2016-11-10] MEDS ORDERED: amLODIPine BESYLATE 5 MG TABLET (FP) PO ONE ×2 (08:00→18:30)
[2016-11-10] MEDS: VALSARTAN 160 MG TABLET (UD) PO SCH (10:24)
[2016-11-10] MEDS: ASPIRIN 81 MG CHEWABLE TABLETS PO SCH (10:24)
--- NOTE | 2016-11-10 11:20 | MSN ---
Progress Note (SOAP) - Subjective Chief Complaint: acute epigastric pain, vomiting, diarrhea History of Present Illness: Pt vomited after being given Tylenol and Reglan. Vomit was nonbloody, nonbilious. Pt also reports one loose stool last night. - Current Medications Current Medications: Active Medications Acetaminophen (Tylenol -) 650 mg PO Q6H PRN PRN Reason: PAIN Last Admin: 11/09/16 22:44 Dose: 650 mg Aspirin (Asa -) [address] [facility] Last Admin: 11/10/16 10:24 Dose: 81 mg Gabapentin (Neurontin -) [address] [facility] Last Admin: 11/10/16 06:17 Dose: 600 mg Heparin Sodium (Porcine) (Heparin -) 5,[address] [facility] Last Admin: 11/10/16 06:17 Dose: 5,000 unit Dextrose/Sodium Chloride (D5-Ns -) 1,000 mls @ 100 mls/hr IV ASDIR [facility] Last Admin: 11/10/16 06:17 Dose: 100 mls/hr Insulin Aspart (Novolog Vial Sliding Scale -) [address] [facility] PRN Reason: Protocol Last Admin: 11/10/16 07:47 Dose: Not Given Metoclopramide HCl (Reglan Injection -) 10 mg IVPB Q6H PRN PRN Reason: NAUSEA AND/OR VOMITING Last Admin: 11/09/16 22:44 Dose: 10 mg Valsartan (Diovan -) [address] [facility] Last Admin: 11/10/16 10:24 Dose: 160 mg - Objective Vital Signs: Vital Signs Temperature 99 F 11/10/16 06:00 Pulse Rate 102 H 11/10/16 06:00 Respiratory Rate 18 11/10/16 06:00 Blood Pressure 162/98 11/10/16 06:00 O2 Sat by Pulse Oximetry (%) 97 11/09/16 19:59 Constitutional: Yes: No Distress, Calm HENT: Yes: Atraumatic, Normocephalic Cardiovascular: Yes: WNL, Regular Rate and Rhythm Gastrointestinal: Yes: WNL, Normal Bowel Sounds, Soft Labs Lab Results: CBC, BMP 11/10/16 06:15 11/10/16 06:15 Laboratory Results - last 24 hr 11/09/16 11/09/16 11/09/16 11:25 11:29 11:29 WBC RBC Hgb Hct MCV MCH MCHC RDW Plt Count MPV INR PTT (Actin FS) Cancelled Sodium 130 L Potassium 2.9 L* Chloride 93 L Carbon Dioxide 23 Anion Gap 14 BUN 9 D Creatinine 0.5 L D Creat Clearance w eGFR POC Glucometer Random Glucose 104 D Calcium 8.7 Phosphorus Magnesium Total Bilirubin AST ALT Alkaline Phosphatase Total Protein Albumin Blood Type O POSITIVE Antibody Screen 11/09/16 11/09/16 11/09/16 11:29 11:29 11:45 WBC RBC Hgb Hct MCV MCH MCHC RDW Plt Count MPV INR Cancelled PTT (Actin FS) Sodium Potassium Chloride Carbon Dioxide Anion Gap BUN Creatinine Creat Clearance w eGFR POC Glucometer 140.83941 Random Glucose Calcium Phosphorus Magnesium Total Bilirubin AST ALT Alkaline Phosphatase Total Protein Albumin Blood Type O POSITIVE Antibody Screen Negative 11/09/16 11/09/16 11/09/16 16:45 17:03 22:54 WBC RBC Hgb Hct MCV MCH MCHC RDW Plt Count MPV INR PTT (Actin FS) Sodium Potassium 3.5 D Chloride Carbon Dioxide Anion Gap BUN Creatinine Creat Clearance w eGFR POC Glucometer 106 131 Random Glucose Calcium Phosphorus Magnesium Total Bilirubin AST ALT Alkaline Phosphatase Total Protein Albumin Blood Type Antibody Screen 11/10/16 11/10/16 11/10/16 06:15 06:15 06:57 WBC 8.2 RBC 3.62 Hgb 10.7 Hct 31.7 L MCV 87.6 MCH 29.6 MCHC 33.8 RDW 15.8 H Plt Count 532 H MPV 6.8 L INR PTT (Actin FS) Sodium 135 L Potassium 3.1 L Chloride 102 Carbon Dioxide 22 Anion Gap 11 BUN 7 D Creatinine 0.4 L Creat Clearance w eGFR > 60 POC Glucometer 133 Random Glucose 127 H D Calcium 8.8 Phosphorus 2.2 L Magnesium 1.2 L D Total Bilirubin 0.4 AST 63 H D ALT 49 D Alkaline Phosphatase 140 H Total Protein 6.3 L Albumin 2.5 L D Blood Type Antibody Screen Assessment/Plan 71 y/o female with PMH of HTN, DM, SLE, DVT presented to ER with acute epigastric pain, vomiting, and diarrhea. #Metabolic acidosis due to lactic acidosis from metformin - lactic acid improved from 3.4 to 1.3 - cont. IV fluids until pt can tolerate po #Nephrolithiasis wit hydronephrosis - pt does not require immediate intervention per urology consult - f/u with outpatient urology #Hypokalemia - correct hypomagnesemia - replete K+ - repeat K+ #Hyponatremia - resolved #Vomiting/diarrhea - improved from admission - cont. Reglan prn nausea - cont. to monitor pt #Hypomagnesemia - magnesium sulfate 2 g IV - magnesium oxide 1.6 gm po - repeat Mg #Hypophosphatemia - Neutra Phos TID - repeat phosphorus #HTN - cont. valsartan - monitor BP #DM - BGM - hold metformin #SLE - currently not on any medications #DVT ppx - cont. heparin Naila Hall, OMS-III
[2016-11-10] MEDS ORDERED: MAGNESIUM SULF 50% (8.12 MEQ/2 ML-1 GM VIAL) IVPB ONE (11:30)
[2016-11-10] MEDS ORDERED: MAGNESIUM CL 64 MG TABLET.SA PO SCH (11:30)
--- NOTE | 2016-11-10 12:53 | PN ---
Teaching Attending Note Name of Resident: Rusty Kevin ATTENDING PHYSICIAN STATEMENT I saw and evaluated the patient. I reviewed the resident's note and discussed the case with the resident. I agree with the resident's findings and plan as documented. SUBJECTIVE:clinically improved. vomited once this AM after tylenol was given. tolerated liquid diet for breakfast. no BM since yesterday. denies CP, SOB, fever, chills, abdominal pain, C/D. OBJECTIVE: Last Vital Signs Temp Pulse Resp BP Pulse Ox 99 F 102 H 18 162/98 97 11/10/16 06:00 11/10/16 06:00 11/10/16 06:00 11/10/16 06:00 11/09/16 19:59 General NAD CV S1 S2 RRR no murmur/rub/gallop LUngs CTA B/L anteriorly Abdomen soft NT/ND no rebound or guarding. normoactivs BS no CVA tenderness extremities no edema ASSESSMENT AND PLAN: 71yo F with PMH DM, HTN and SLE presented to the ER with vomiting and diarrhea 1. Acute AG metabolic acidosis- likely due to lactic acidosis from metformin vs presumed ketosis. resolved. cont to hold metformin due to contrast exposure. can restart on sunday. as unclear if metformin is cause of lactic acidosis would resume it when able to as A1c is controlled on current management. nausea and pain control 2. Nephrolithasis with hydronephrosis-no urology intervention at this time. will need outpatient follow up. 3. Hypokalemia- due to nausea/vomiting. improved. replete 4. Hyponatremia- due to vomiting. improved. 5. Hypomagnesemia- Mg po and iv 6. vomiting/diarrhea- can be due to AG metabolic acidosis and less likely gastroenteritis or foodborne pathogen. 1 episode of vomiting. diet advanced to clear liquids. if able to tolerate for lunch will advance for dinner. will d/c IVF if tolerating diet. F/u Cx. 7. HTN-elevated this AM. once am meds given repeat was 134/80. will hold off on starting additional agent at this time. if needed will re-consider 8. SLE- currently not on any medications. no steroid therapy. 9. DVT ppx -hep sq 10. d/c planning tomorrow if able to tolerate diet, vomiting and diarrhea subsided and electrolytes normalized.
[2016-11-10] MEDS ORDERED: MAGNESIUM OXIDE 400 MG TABLET (FP) PO ONE (13:30)
[2016-11-10] MEDS: ACETAMINOPHEN 325 MG TABLET (FP) PO PRN (13:58)
[2016-11-10] MEDS: NAPH,MB-DB/K PH,MBDB POWDER PACKET PO SCH ×2 (14:21→22:48)
--- NOTE | 2016-11-10 23:05 | PN ---
Physical Exam: SUBJECTIVE: Patient seen and examined at bedside. She states she feels better today. Patient had one episode of vomiting overnight. Patient still having diarrhea. abdominal pain is also better today OBJECTIVE: Vital Signs Period Temp Pulse Resp BP Sys/Guardado Pulse Ox Last 24 Hr 98.1 F-99.2 F 91-108 18-20 138-173/82-102 97 GENERAL: The patient is awake, alert, and fully oriented, in no acute distress. HEAD: Normal with no signs of trauma. EYES: extraocular movements intact, sclera anicteric, conjunctiva clear. No ptosis. NECK: Trachea midline, full range of motion, supple. LUNGS: Breath sounds equal, clear to auscultation bilaterally, no wheezes, no crackles, no accessory muscle use. HEART: irregular rate, regular rhythm, S1, S2 without murmur, rub or gallop. ABDOMEN: Soft, nontender, nondistended, normoactive bowel sounds, no guarding, no rebound. EXTREMITIES: 2+ pulses, warm, well-perfused, no edema. NEUROLOGICAL: Cranial nerves II through X grossly intact. Normal speech, gait not observed. PSYCH: Normal mood, normal affect. SKIN: Warm, dry, normal turgor, no rashes or lesions noted Laboratory Results - last 24 hr 11/09/16 11/10/16 11/10/16 22:54 06:15 06:15 WBC 8.2 RBC 3.62 Hgb 10.7 Hct 31.7 L MCV 87.6 MCH 29.6 MCHC 33.8 RDW 15.8 H Plt Count 532 H MPV 6.8 L Sodium 135 L Potassium 3.1 L Chloride 102 Carbon Dioxide 22 Anion Gap 11 BUN 7 D Creatinine 0.4 L Creat Clearance w eGFR > 60 POC Glucometer 131 Random Glucose 127 H D Calcium 8.8 Phosphorus 2.2 L Magnesium 1.2 L D Total Bilirubin 0.4 AST 63 H D ALT 49 D Alkaline Phosphatase 140 H Total Protein 6.3 L Albumin 2.5 L D 11/10/16 11/10/16 11/10/16 06:57 12:06 17:53 WBC RBC Hgb Hct MCV MCH MCHC RDW Plt Count MPV Sodium Potassium Chloride Carbon Dioxide Anion Gap BUN Creatinine Creat Clearance w eGFR POC Glucometer 133 115 131 Random Glucose Calcium Phosphorus Magnesium Total Bilirubin AST ALT Alkaline Phosphatase Total Protein Albumin Active Medications Generic Name Dose Route Start Last Admin Trade Name Freq PRN Reason Stop Dose Admin Acetaminophen 650 mg 11/09/16 06:29 11/10/16 13:58 Tylenol - PO 650 mg Q6H PRN Administration PAIN Aspirin 81 mg 11/09/16 10:00 11/10/16 10:24 Asa - PO 81 mg DAILY ELIDA Administration Gabapentin 600 mg 11/09/16 06:30 11/10/16 14:21 Neurontin - PO 600 mg TID ELIDA Administration Heparin Sodium (Porcine) 5,000 unit 11/09/16 06:45 11/10/16 14:22 Heparin - SQ 5,000 unit TID ELIDA Administration Insulin Aspart 1 vial 11/09/16 07:00 11/10/16 18:04 Novolog Vial Sliding Scale - SQ Not Given [facility] Protocol Metoclopramide HCl 10 mg 11/09/16 06:21 11/09/16 22:44 Reglan Injection - IVPB 10 mg Q6H PRN Administration NAUSEA AND/OR VOMITING Potassium Phos/Sodium Phos 1 packet 11/10/16 14:00 11/10/16 14:21 Phos-Nak Packet - PO 1 packet TID ELIDA Administration Valsartan 160 mg 11/09/16 10:00 11/10/16 10:24 Diovan - PO 160 mg DAILY ELIDA Administration ASSESSMENT/PLAN: 71yo F with PMH DM, HTN and SLE presented to the ER with NBNB vomiting and diarrhea #Acute AG metabolic acidosis likely 2/2 lactic acidosis 2/2 metformin vs presumed ketosis. -NS @ 75 -holding metformin -cont hydration until can tolerate po. -Reglan for nausea -pain control with tylenol #Hydronephrosis 2/2 Nephrolithasis with possible obstruction -patient without symptoms at this time -urology: no acute intervention at this time #Hypokalemia likely 2/2 vomiting- resolved -k 3.1 today #Hyponatremia likely 2/2 vomiting. -resolved -Na 135 #Vomiting/diarrhea 2/2 AG metabolic acidosis vs gastroenteritis vs foodborne pathogen. -CT negative for colitis. -ucx and bcx negative #HTN -continue home medications. -valsartan -added norvasc 5mg PO; patient hypertensive #SLE -currently not on any medications #FEN -ns @ 75 -low mag and phos; will replete -regular diet #Prophy -heparin sq 5ku #dispo -admitted for nausea and vomiting causing multiple electrolyte abnormalities Problem List - Problems (1) Dehydration Code(s): E86.0 - DEHYDRATION (2) Hyponatremia Code(s): E87.1 - HYPO-OSMOLALITY AND HYPONATREMIA (3) Nausea and vomiting Code(s): R11.2 - NAUSEA WITH VOMITING, UNSPECIFIED Qualifiers: Qualified Code(s): R11.2 - Nausea with vomiting, unspecified (4) Hypokalemia Code(s): E87.6 - HYPOKALEMIA Visit type - Emergency Visit Emergency Visit: Yes ED Registration Date: 11/09/16 Care time: The patient presented to the Emergency Department on the above date and was hospitalized for further evaluation of their emergent condition. - New Patient This patient is new to me today: No - Critical Care Critical Care patient: No
[2016-11-11] MEDS: HEPARIN NA (PORCINE) 5,000 UNITS/ML 1ML VIAL SQ SCH ×2 (05:50→15:29)
[2016-11-11] MEDS: GABAPENTIN 300 MG CAPSULE (FP) PO SCH ×2 (05:50→15:28)
[2016-11-11] MEDS: NAPH,MB-DB/K PH,MBDB POWDER PACKET PO SCH ×2 (05:50→15:29)
[2016-11-11] MEDS: INSULIN SLIDING SCALE (NOVOLOG) 1 VIAL SQ SCH ×2 (06:17→12:03)
[2016-11-11 09:27] LABS: ANION GAP 12 (8-16); CALCIUM 9.4 mg/dL (8.5-10.1); CO2 23 mmol/L (21-32); CREATININE 0.5 mg/dL (0.55-1.02); GLUCOSE,RANDOM 107 mg/dL (74-106)
[2016-11-11] MEDS ORDERED: amLODIPine BESYLATE 2.5 MG TABLET (FP) PO ONE (09:30)
[2016-11-11] MEDS ORDERED: POTASSIUM CHLORIDE ORAL LIQUID 20 MEQ/15 ML PO ONE ×2 (09:50→12:25)
--- NOTE | 2016-11-11 09:54 | PN ---
Progress Note (short form) - Note Progress Note: states nausea and vomiting has resolved. 2 loose BM since yesterday but this is improved since presentation. deneis Cp, SOB, fever, chills, abdominal pain, N/V/ C/D Current Medications Generic Name Dose Route Start Last Admin Trade Name Freq PRN Reason Stop Dose Admin Acetaminophen 650 mg 11/09/16 06:29 11/10/16 13:58 Tylenol - PO 650 mg Q6H PRN Administration PAIN Aspirin 81 mg 11/09/16 10:00 11/10/16 10:24 Asa - PO 81 mg DAILY ELIDA Administration Gabapentin 600 mg 11/09/16 06:30 11/11/16 05:50 Neurontin - PO 600 mg TID ELIDA Administration Heparin Sodium (Porcine) 5,000 unit 11/09/16 06:45 11/11/16 05:50 Heparin - SQ 5,000 unit TID ELIDA Administration Potassium Chloride 100 mls @ 100 mls/hr 11/11/16 10:00 Potassium Chloride 10 Meq Premix Ivpb - IVPB 11/11/16 10:59 Q60M [facility] Insulin Aspart 1 vial 11/09/16 07:00 11/11/16 06:17 Novolog Vial Sliding Scale - SQ Not Given ACHS [facility] Protocol Metoclopramide HCl 10 mg 11/09/16 06:21 11/09/16 22:44 Reglan Injection - IVPB 10 mg Q6H PRN Administration NAUSEA AND/OR VOMITING Potassium Chloride 40 meq 11/11/16 09:50 Potassium Chloride Oral Liquid PO 11/11/16 09:51 ONCE ONE Potassium Phos/Sodium Phos 1 packet 11/10/16 14:00 11/11/16 05:50 Phos-Nak Packet - PO 1 packet TID ELIDA Administration Valsartan 160 mg 11/09/16 10:00 11/10/16 10:24 Diovan - PO 160 mg DAILY ELIDA Administration Last Vital Signs Temp Pulse Resp BP Pulse Ox 99.4 F 84 18 149/68 96 11/11/16 06:00 11/11/16 06:00 11/11/16 06:00 11/11/16 06:00 11/10/16 21:00 General NAD CV S1 S2 RRR no murmur/rub/gallop LUngs CTA B/L anteriorly Abdomen soft NT/ND no rebound or guarding. normoactivs BS no CVA tenderness extremities no edema CMP Sodium 137 mmol/L (136-145) 11/11/16 08:20 Potassium 3.1 mmol/L (3.5-5.1) L 11/11/16 08:20 Chloride 102 mmol/L (98-107) 11/11/16 08:20 Carbon Dioxide 23 mmol/L (21-32) 11/11/16 08:20 Anion Gap 12 (8-16) 11/11/16 08:20 BUN 6 mg/dL (7-18) L 11/11/16 08:20 Creatinine 0.5 mg/dL (0.55-1.02) L D 11/11/16 08:20 Creat Clearance w eGFR > 60 (>60) 11/10/16 06:15 Calcium 9.4 mg/dL (8.5-10.1) 11/11/16 08:20 Total Bilirubin 0.4 mg/dL (0.2-1.0) 11/10/16 06:15 AST 63 U/L (15-37) H D 11/10/16 06:15 ALT 49 U/L (12-78) D 11/10/16 06:15 Alkaline Phosphatase 140 U/L (45-117) H 11/10/16 06:15 Total Protein 6.3 g/dl (6.4-8.2) L 11/10/16 06:15 Albumin 2.5 g/dl (3.4-5.0) L D 11/10/16 06:15 ASSESSMENT AND PLAN: 71yo F with PMH DM, HTN and SLE presented to the ER with vomiting and diarrhea 1. Acute AG metabolic acidosis- likely due to lactic acidosis from metformin vs presumed ketosis. resolved. cont to hold metformin due to contrast exposure. can restart on sunday. explained to pt to not take medication today and to start tomorrow. as unclear if metformin is cause of lactic acidosis would resume it when able to as A1c is controlled on current management. nausea and pain control 2. Nephrolithasis with hydronephrosis-no urology intervention at this time. will need outpatient follow up. 3. Hypokalemia- due to nausea/vomiting. improved. Kcl 10meq x1 and 40meq po 4. Hyponatremia- due to vomiting. improved. 5. Hypomagnesemia- awaiting repeat labs, will repelete as necessary 6. vomiting/diarrhea- can be due to AG metabolic acidosis and less likely gastroenteritis or foodborne pathogen. now resolved. tolerating regular diet. no stool studies obtained. Cx negative. 7. HTN-above goal. start low dose norvasc. informed her need to monitor BP. low salt diabetic diet. 8. SLE- currently not on any medications. no steroid therapy. 9. DVT ppx -hep sq 10. d/c home. Has appt with PMD on 11/16. informed her to keep appointment and to have electrolytes repeated and BP checked. verbalized understanding and agreement. Visit type - Emergency Visit Emergency Visit: Yes ED Registration Date: 11/09/16 Care time: The patient presented to the Emergency Department on the above date and was hospitalized for further evaluation of their emergent condition. - New Patient This patient is new to me today: No - Critical Care Critical Care patient: No - Discharge Referral Referred to [facility] Med P.C.: No
[2016-11-11] MEDS ORDERED: KCL 10 MEQ IVPB 100 ML IVPB SCH (10:00)
[2016-11-11] MEDS ORDERED: amLODIPine BESYLATE 5 MG TABLET (FP) PO ONE (10:01)
[2016-11-11 10:02] LABS: MAGNESIUM 1.6 mg/dL (1.8-2.4); PHOSPHOROUS 2.9 mg/dL (2.5-4.9)
[2016-11-11] MEDS ORDERED: MAGNESIUM OXIDE 400 MG TABLET (FP) PO ONE (10:45)
[2016-11-11] MEDS: VALSARTAN 160 MG TABLET (UD) PO SCH (11:38)
[2016-11-11] MEDS: ASPIRIN 81 MG CHEWABLE TABLETS PO SCH (11:38)
[2016-11-11] MEDS ORDERED: oxyCODONE HCL 5 MG TABLET PO ONE (15:18)
[2016-11-11 20:19] VITALS: BP 140/75; PULSE 98; TEMP 98.9
--- NOTE | 2016-11-13 20:49 | DS ---
Physical Exam: LABS Laboratory Last Values WBC 8.2 K/mm3 (4.0-10.0) 11/10/16 06:15 RBC 3.62 M/mm3 (3.60-5.2) 11/10/16 06:15 Hgb 10.7 GM/dL (10.7-15.3) 11/10/16 06:15 Hct 31.7 % (32.4-45.2) L 11/10/16 06:15 MCV 87.6 fl (80-96) 11/10/16 06:15 MCH 29.6 pg (25.7-33.7) 11/10/16 06:15 MCHC 33.8 g/dl (32.0-36.0) 11/10/16 06:15 RDW 15.8 % (11.6-15.6) H 11/10/16 06:15 Plt Count 532 K/MM3 (134-434) H 11/10/16 06:15 MPV 6.8 fl (7.5-11.1) L 11/10/16 06:15 Neutrophils % Y 11/09/16 02:44 Lymphocytes % Y 11/09/16 02:44 Platelet Estimate Increased (NORMAL) 11/09/16 02:44 Platelet Comment No clumping noted 11/09/16 02:44 Platelet Comment No clotting detected 11/09/16 02:44 INR Cancelled 11/09/16 02:44 PTT (Actin FS) Cancelled 11/09/16 02:44 VBG pH 7.50 (7.32-7.42) H 11/09/16 03:20 POC VBG pCO2 28.6 mmHg (38-52) L 11/09/16 03:20 POC VBG pO2 26.3 mmHg (28-48) L 11/09/16 03:20 Mixed VBG HCO3 22.3 meq/L (19-25) 11/09/16 03:20 Sodium 137 mmol/L (136-145) 11/11/16 08:20 Potassium 3.1 mmol/L (3.5-5.1) L 11/11/16 08:20 Chloride 102 mmol/L (98-107) 11/11/16 08:20 Carbon Dioxide 23 mmol/L (21-32) 11/11/16 08:20 Anion Gap 12 (8-16) 11/11/16 08:20 BUN 6 mg/dL (7-18) L 11/11/16 08:20 Creatinine 0.5 mg/dL (0.55-1.02) L D 11/11/16 08:20 Creat Clearance w eGFR > 60 (>60) 11/10/16 06:15 POC Glucometer 105 UNITS (()) 11/11/16 12:02 Random Glucose 107 mg/dL (74-106) H 11/11/16 08:20 Hemoglobin A1c % 6.2 % (4.8-6.0) H 11/09/16 02:44 Lactic Acid 1.3 mmol/L (0.4-2.0) 11/09/16 06:35 Calcium 9.4 mg/dL (8.5-10.1) 11/11/16 08:20 Phosphorus 2.9 mg/dL (2.5-4.9) D 11/11/16 08:20 Magnesium 1.6 mg/dL (1.8-2.4) L D 11/11/16 08:20 Total Bilirubin 0.4 mg/dL (0.2-1.0) 11/10/16 06:15 AST 63 U/L (15-37) H D 11/10/16 06:15 ALT 49 U/L (12-78) D 11/10/16 06:15 Alkaline Phosphatase 140 U/L (45-117) H 11/10/16 06:15 Creatine Kinase 80 IU/L (26-192) 11/09/16 02:44 Troponin I 0.02 ng/ml (0.00-0.05) 11/09/16 02:44 Total Protein 6.3 g/dl (6.4-8.2) L 11/10/16 06:15 Albumin 2.5 g/dl (3.4-5.0) L D 11/10/16 06:15 Lipase 96 U/L (73-393) 11/09/16 02:44 Urine Color Straw 11/09/16 04:50 Urine Appearance Clear 11/09/16 04:50 Urine pH 6.0 (5.0-8.0) 11/09/16 04:50 Ur Specific Sparks 1.010 (1.005-1.025) 11/09/16 04:50 Urine Protein 2+ (NEGATIVE) H 11/09/16 04:50 Urine Glucose (UA) Negative (NEGATIVE) 11/09/16 04:50 Urine Ketones Negative (NEGATIVE) 11/09/16 04:50 Urine Blood Negative (NEGATIVE) 11/09/16 04:50 Urine Nitrite Negative (NEGATIVE) 11/09/16 04:50 Urine Bilirubin Negative (NEGATIVE) 11/09/16 04:50 Urine Urobilinogen Negative mg/dL (0.2-1.0) 11/09/16 04:50 Ur Leukocyte Esterase Negative (NEGATIVE) 11/09/16 04:50 Urine RBC <1 /hpf (0-3) 11/09/16 04:50 Urine WBC None /hpf (3-5) 11/09/16 04:50 Ur Epithelial Cells Rare /hpf (FEW) 11/09/16 04:50 Urine Bacteria Rare /hpf (NONE SEEN) 11/09/16 04:50 Anti-A Titer Cancelled 11/09/16 02:44 Blood Type O POSITIVE 11/09/16 11:29 Antibody Screen Negative 11/09/16 11:29 Spec Expiration Date Cancelled 11/09/16 02:44 HOSPITAL COURSE: Date of Admission:11/09/16 The patient is a 71 yo f w/ PMH of DM2, HTN, Systemic Lupus, 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 The pain was described as sharp, 10/10 in intensity, nonradiating pain in the epigastric region which was associated with NBNB emesis. The patient also complained of diarrhea x5 times. The patient cooks her own food and does not recall eating anything out of the ordinary. She is not around small children or around sick contacts. Denies recent travel. She has subjective fevers and chills. Denies CP, SOB, headache, paresthesias, dysuria. In the ED, The patient was found to be hypokalemic to 2.9, hyponatremic to 125 and hypochloremic to 88. She also had an elevated lactic acid at 3.4. CT scan showed hydronephrosis and renal calculi without clear evidence of obstruction and a rim-enhancing collection/cystic lesion in the left ileopsoas region. The CT read was limited by extensive streak artifact in the pelvic area secondary to a previous hip transplant. The patient was admitted for management of severe electrolyte derangements and lactic acidosis. The patient was treated with Zofran, IV fluids, Metoclopramide, Acetaminophen, dilaudid and amlodipine to control elevated blood pressure noted during her stay. Dr. Alli Horne from urology was consulted to evaluate the CT findings. No immediate urological intervention was indicated at the time. The patient's clinical status improved over the next two days and her electrolyte abnormalities stabilized. The patient was discharged home with instructions to follow up With her primary care physician within one week to check her blood pressure and her electrolytes. She was instructed to resume all of her home medications the next day. She was sent home with a new prescription for amlodipine 5mg. She was instructed to take this medication once per day and to follow up with her PCP to monitor her blood pressure. The patient was also advised to follow up with Dr. Horne for further treatment of her hydronephrosis and renal calculi. She was instructed to follow up with her orthopedic surgeon as her CT indicated that her hip replacement may have been loose. The patient was advised to return to the ER if she experienced any worsening of her symptoms. Date of Discharge: 11/11/16 Minutes to complete discharge: 35 Discharge Summary Reason For Visit: HYPONATREMIA DEHYDRATION Current Active Problems Dehydration (Acute) Hydronephrosis, left (Acute) Hypokalemia (Acute) Hyponatremia (Acute) Condition: Improved - Instructions Diet, Activity, Other Instructions: You were admitted for your vomiting and diarrhea, both of which resolved. You had electrolyte distubances during your stay which have been corrected. Have your labs checked by your primary when you see her next week to ensure they are stable. Continue to eat a low salt and diabetic diet. Re-start your metformin tomorrow, Do not take this medication today. You were started on a new antihypertensive medication, take this daily. Have your blood pressure checked to see if you need further adjustment. Take your medications as instructed Follow up with your primary next week for lab and blood pressure check. You were found to have multiple kidney stones, follow up with urology. referral to the urologist you saw here has been provided Follow up with your orthopedic surgeon as your hip replacement looks like it may be loose. It is important to follow if this is worsening or stable. Have him call the office for results of our imaging here. If your symptoms worsen return to the ER. Referrals: Alli Horne MD [Staff Physician] - Gina Fofana MD [Primary Care Provider] - Disposition: HOME - Home Medications Comprehensive Discharge Medication List: Ambulatory Orders Aspirin [ASA -] 81 mg PO DAILY 05/14/16 Gabapentin 600 mg PO TID 05/14/16 Metformin HCl [Glucophage] 500 mg PO BID 05/14/16 Ondansetron [Zofran Odt -] 4 mg SL TID PRN #21 od.tablet 05/14/16 Oxycodone HCl 10 mg PO PRN 05/14/16 Valsartan [Diovan] 160 mg PO DAILY 05/14/16 Amlodipine Besylate [Norvasc -] 5 mg PO DAILY #30 tablet 11/11/16 Problem List - Problems (1) Dehydration Code(s): E86.0 - DEHYDRATION (2) Hyponatremia Code(s): E87.1 - HYPO-OSMOLALITY AND HYPONATREMIA (3) Nausea and vomiting Code(s): R11.2 - NAUSEA WITH VOMITING, UNSPECIFIED Qualifiers: Qualified Code(s): R11.2 - Nausea with vomiting, unspecified (4) Hypokalemia Code(s): E87.6 - HYPOKALEMIA This patient is new to me today: No Emergency Visit: Yes ED Registration Date: 11/09/16 Care time: The patient presented to the Emergency Department on the above date and was hospitalized for further evaluation of their emergent condition. Critical Care patient: No - Discharge Referral Referred to [facility] Med P.C.: No
== END 2016-11-11 15:44 | disposition home or self-care (01) | DRG 641 ==
LOC: JER 01:57 → JERBED 05:37 → OBSVTOIN 06:26 → J5S 15:45
PROVIDERS: ADMIT Internal Medicine; ATTEND Internal Medicine
DX: E87.2 Acidosis (principal); N13.2 Hydronephrosis with renal and ureteral calculous obstruction; E87.1 Hypo-osmolality and hyponatremia; I10 Essential (primary) hypertension; E87.3 Alkalosis; E78.5 Hyperlipidemia, unspecified; E11.9 Type 2 diabetes mellitus without complications; K21.9 Gastro-esophageal reflux disease without esophagitis; M32.8 Other forms of systemic lupus erythematosus; E86.0 Dehydration; I77.810 Thoracic aortic ectasia; I25.10 Atherosclerotic heart disease of native coronary artery without angina pectoris; K52.89 Other specified noninfective gastroenteritis and colitis; E83.39 Other disorders of phosphorus metabolism; E83.42 Hypomagnesemia; E87.6 Hypokalemia; T38.3X5A Adverse effect of insulin and oral hypoglycemic [antidiabetic] drugs, initial encounter; Z96.611 Presence of right artificial shoulder joint; Z96.643 Presence of artificial hip joint, bilateral; Z86.718 Personal history of other venous thrombosis and embolism; Z79.84 Long term (current) use of oral hypoglycemic drugs
CPT/HCPCS: 36415; 71010-TC; 71260-TC; 74177-TC; 80048; 80053; 81003; 81015; 82803; 83036; 83605; 83690; 83735; 84100; 84132; 84484; 85025; 85027; 86850; 86900; 86901; 87040; 87086; 93005; 93010; 97116-GP; 97161-GP; 99285-25; G0378; J1644

== ENCOUNTER 2018-05-23 12:29 | Emergency (ER) | payer OTHER ==
[2018-05-23 12:59] VITALS: BMI 28.9
--- NOTE | 2018-05-23 13:15 | PDOC ---
Attending Attestation - Resident Resident Name: Meka Figueredo - ED Attending Attestation I have performed the following: I have examined & evaluated the patient, The case was reviewed & discussed with the resident, I agree w/resident's findings & plan, Exceptions are as noted - HPI HPI: 05/23/18 13:14 72y F hx of DM2, htn, lupus, AVN of hip, presents with diarrhea x 3 days, has been having multiple episodes per day without blood, and is watery in nature, there is associated nausea with nbnb vomiting (has since reoslved, no vomiting since yesterday) . no sick contacts, abx use or travel. no associated abdominal pain, fever/chills, melena, bpr. - Physicial Exam PE: 05/23/18 16:03 GENERAL: The patient is awake, alert, and fully oriented, Nontoxic - in no acute distress. HEAD: Normocephalic, atraumatic. EYES: extraocular movements intact, sclera anicteric, conjunctiva clear. ENT: Normal voice, Moist mucous membranes. NECK: Normal range of motion, supple LUNGS: Breath sounds equal, clear to auscultation bilaterally. No wheezes, no rhonchi, no rales. HEART: Regular rate and rhythm, normal S1 and S2 without murmur, rub or gallop. ABDOMEN: Soft, nontender, EXTREMITIES: Normal range of motion, no edema. NEUROLOGICAL: No facial assymetry, Normal speech, PSYCH: Normal mood, normal affect. SKIN: scabbed over vesicular lesions aprox T4 distribution on L chest to midline with mild erhthema - Medical Decision Making 05/23/18 16:14 suspect viral gastroenteritis no abd ttp to suggest acute peritonitis pt also well appearing pt has a rash c/w shingles on T4 distrubtion that appears possible supralinfected will treat with valtrex and keflex
[2018-05-23] MEDS ORDERED: SODIUM CHLORIDE 500 ML IV STA (13:21)
[2018-05-23] MEDS ORDERED: diphenhydrAMINE HCL 25 MG CAPSULE (FP) PO ONE ×2 (13:23→13:30)
--- NOTE | 2018-05-23 13:32 | PDOC ---
History of Present Illness - History of Present Illness Initial Comments: 05/23/18 13:27 Patient is a 72 y/o female with a history of DM2, HTN, lupus, and AVN of the hip who presents for nausea and diarrhea. She states that her symptoms began three days ago. She had a boost drink before her first episode. She denies any blood in her stool and notes the diarrhea has been liquidy. She has been going multiple times a day, the most recent episode being before coming to the ED. She has also been nauseous but without vomiting. She denies any recent traveling , denies recent antibiotic use, denies any abdominal pain or pain with the bowel movement, denies fevers and chills. 05/23/18 13:35 benadryl for nausea, last QTC 483, f/u new EKG, f/u labs 05/23/18 15:12 repeat QTC 463, labs WNL, shingles found start valtrex <Meka Figueredo - Last Filed: 05/23/18 15:53> <Bill Kulkarni - Last Filed: 05/23/18 16:16> - General Chief Complaint: Diarrhea Stated Complaint: Vomiting/Diarrhea Time Seen by Provider: 05/23/18 13:13 Past History - Past Medical History Anemia: No Asthma: No Cancer: No Cardiac Disorders: No CVA: No COPD: No CHF: No Dementia: No Diabetes: Yes GI Disorders: Yes (gerd) Disorders: No HTN: Yes Hypercholesterolemia: Yes Liver Disease: No Seizures: No Thyroid Disease: No - Surgical History Abdominal Surgery: No Appendectomy: No Cardiac Surgery: No Cholecystectomy: No Lung Surgery: No Neurologic Surgery: No Orthopedic Surgery: Yes (BILATERAL HIP REPLACEMENT RIGHT SHOULDER) - Immunization History Td Vaccination: (unknown) Immunization Up to Date: Yes - Suicide/Smoking/Psychosocial Hx Smoking Status: Yes Smoking History: Current every day smoker Years of Tobacco Use: 10 Have you smoked in the past 12 months: No Number of Cigarettes Smoked Daily: 2 If you are a former smoker, when did you quit?: yrs ago Cigars Per Day: 0 Information on smoking cessation initiated: No Hx Alcohol Use: No Drug/Substance Use Hx: No Substance Use Type: None Hx Substance Use Treatment: No <Meka Figueredo - Last Filed: 05/23/18 15:53> <Shad,Bill - Last Filed: 05/23/18 16:16> - Past Medical History Allergies/Adverse Reactions: Allergies Allergy/AdvReac Type Severity Reaction Status Date / Time prochlorperazine edisylate Allergy Intermediate tongue Verified 11/09/16 02:14 [From Compazine] gets heavy prochlorperazine maleate AdvReac Intermediate tongue Verified 11/09/16 02:14 [From LightArrowazine] gets heavy Home Medications: Ambulatory Orders Aspirin [ASA -] 81 mg PO DAILY 05/14/16 Gabapentin 600 mg PO TID 05/14/16 Metformin HCl [Glucophage] 500 mg PO BID 05/14/16 Ondansetron [Zofran Odt -] 4 mg SL TID PRN #21 od.tablet 05/14/16 Oxycodone HCl 10 mg PO PRN 05/14/16 Valsartan [Diovan] 160 mg PO DAILY 05/14/16 Amlodipine Besylate [Norvasc -] 5 mg PO DAILY #30 tablet 11/11/16 Cephalexin [Keflex] 500 mg PO QID #25 capsule 05/23/18 Valacyclovir HCl [Valtrex] 1,000 mg PO Q12H #20 tablet 05/23/18 Review of Systems - Review of Systems Constitutional: No: Chills, Fever HEENTM: No: Double Vision Respiratory: No: Cough, Shortness of Breath Cardiac (ROS): No: Chest Pain, Edema ABD/GI: Yes: Diarrhea, Poor Appetite, Vomiting. No: Abdominal Distended, Abd. Pain w/ defecation, Blood Streaked Bowels, Constipated, Nausea Musculoskeletal: No: Muscle Pain <Green,Meka - Last Filed: 05/23/18 15:53> *Physical Exam - Vital Signs Last Vital Signs Temp Pulse Resp BP Pulse Ox 98.7 F 76 16 111/57 L 96 05/23/18 12:30 05/23/18 12:30 05/23/18 12:30 05/23/18 12:30 05/23/18 12:30 - Physical Exam Comments: 05/23/18 13:34 GENERAL: A&O x3, no acute distress HEENT: membranes mildly dry HEART: RRR, no murmurs, rubs or gallops LUNGS: CTAL B/L ABD: no tenderness to palpation, soft, nondistended EXTREMITIES: no pitting edema SKIN: crusted over vesicular rash under right breast and around back <eMka Figueredo - Last Filed: 05/23/18 15:53> - Vital Signs Last Vital Signs Temp Pulse Resp BP Pulse Ox 98.2 F 70 16 118/60 98 05/23/18 16:01 05/23/18 16:01 05/23/18 16:01 05/23/18 16:01 05/23/18 16:01 <Bill Kulkarni - Last Filed: 05/23/18 16:16> Moderate Sedation - Procedure Monitoring Vital Signs: Procedure Monitoring Vital Signs Temperature 98.7 F 05/23/18 12:30 Pulse Rate 76 05/23/18 12:30 Respiratory Rate 16 05/23/18 12:30 Blood Pressure 111/57 L 05/23/18 12:30 O2 Sat by Pulse Oximetry (%) 96 05/23/18 12:30 <Meka Figueredo - Last Filed: 05/23/18 15:53> - Procedure Monitoring Vital Signs: Procedure Monitoring Vital Signs Temperature 98.2 F 05/23/18 16:01 Pulse Rate 70 05/23/18 16:01 Respiratory Rate 16 05/23/18 16:01 Blood Pressure 118/60 05/23/18 16:01 O2 Sat by Pulse Oximetry (%) 98 05/23/18 16:01 <Bill Kulkarni - Last Filed: 05/23/18 16:16> ED Treatment Course - LABORATORY CBC & Chemistry Diagram: 05/23/18 14:07 05/23/18 14:07 <Meka Figueredo - Last Filed: 05/23/18 15:53> - LABORATORY CBC & Chemistry Diagram: 05/23/18 14:07 05/23/18 14:07 - ADDITIONAL ORDERS Additional order review: Laboratory Results 05/23/18 14:07 Sodium 131 L Potassium 3.4 L Chloride 98 Carbon Dioxide 25 Anion Gap 7 L BUN 11 Creatinine 0.4 L Creat Clearance w eGFR 156.46 Random Glucose 114 H Calcium 8.4 L Total Bilirubin 0.5 AST 41 H ALT 25 Alkaline Phosphatase 99 Total Protein 6.0 L Albumin 2.8 L 05/23/18 14:07 RBC 3.42 L MCV 93.9 MCHC 35.2 RDW 15.3 MPV 6.7 L Neutrophils % 59.6 Lymphocytes % 25.6 Monocytes % 14.2 H Eosinophils % 0.1 D Basophils % 0.5 - Medications Given in the ED: ED Medications Discontinued Medications Generic Name Dose Route Start Last Admin Trade Name Jordan PRN Reason Stop Dose Admin Cephalexin HCl 500 mg 05/23/18 15:08 05/23/18 15:43 Keflex - PO 05/23/18 15:09 500 mg ONCE ONE Administration Diphenhydramine HCl 25 mg 05/23/18 13:23 05/23/18 13:52 Benadryl - PO 05/23/18 13:24 25 mg ONCE ONE Administration Sodium Chloride 500 mls @ 500 mls/hr 05/23/18 13:21 05/23/18 13:52 Normal Saline - IV 05/23/18 14:20 500 mls/hr ASDIR STA Administration Valacyclovir HCl 1,000 mg 05/23/18 15:06 05/23/18 15:43 Valtrex - PO 05/23/18 15:07 1,000 mg ONCE ONE Administration <Bill Kulkarni - Last Filed: 05/23/18 16:16> *DC/Admit/Observation/Transfer <Meka Figueredo - Last Filed: 05/23/18 15:53> - Discharge Dispostion Decision to Admit order: No <Bill Kulkarni - Last Filed: 05/23/18 16:16> Diagnosis at time of Disposition: Viral gastritis, Cellulitis Shingles Qualifiers: Herpes zoster complications: without complications Qualified Code(s): B02.9 - Zoster without complications - Discharge Dispostion Disposition: HOME Condition at time of disposition: Stable - Prescriptions Prescriptions: Cephalexin [Keflex] 500 mg PO QID #25 capsule Valacyclovir HCl [Valtrex] 1,000 mg PO Q12H #20 tablet - Referrals Referrals: Gina Fofana MD [Primary Care Provider] - 1 week - Patient Instructions Printed Discharge Instructions: Shingles, Viral Gastroenteritis Additional Instructions: You came to the Emergency Room for diarrhea. We evaluated your labs and did not find any abnormalities. Continue to drink fluids and take tylenol as needed. While you were here we also found that you have a rash and this is shingles. To complete treatment of the shingles please take: Valtrex 1000 mg by mouth twice a day Keflex 500 mg by mouth four times a day for five days Please make an appointment to follow up with your primary care physician. Please continue your other home medications as prescribed. Return to the Emergency Room if you have any blood in your stool, dizziness, chest pain, vomiting blood, or shortness of breath. - Post Discharge Activity
[2018-05-23 14:17] LABS: BASO % 0.5 % (0-2.0); EOS % 0.1 % (0-4.5); HEMATOCRIT 32.1 % (32.4-45.2); HEMOGLOBIN 11.3 GM/dL (10.7-15.3); LYMPH % 25.6 % (8-40); MCH 33.1 pg (25.7-33.7); MCHC 35.2 g/dl (32.0-36.0); MEAN CELL VOLUME 93.9 fl (80-96); MEAN PLT VOLUME 6.7 fl (7.5-11.1); MONO % 14.2 % (3.8-10.2); NEUT % 59.6 % (42.8-82.8); PLATELET COUNT 236 K/MM3 (134-434); RBC 3.42 M/mm3 (3.60-5.2); RDW 15.3 % (11.6-15.6); WHITE BLOOD COUNT 6.8 K/mm3 (4.0-10.0)
[2018-05-23 14:47] LABS: ALBUMIN 2.8 g/dl (3.4-5.0); ALK PHOS 99 U/L (45-117); ANION GAP 7 MMOL/L (8-16); BILIRUBIN,TOTAL 0.5 mg/dL (0.2-1); BLOOD UREA NITROGEN 11 mg/dL (7-18); CALCIUM 8.4 mg/dL (8.5-10.1); CHLORIDE 98 mmol/L (98-107); CO2 25 mmol/L (21-32); CREATININE 0.4 mg/dL (0.55-1.3); GLUCOSE,RANDOM 114 mg/dL (74-106); POTASSIUM 3.4 mmol/L (3.5-5.1); SGOT/AST 41 U/L (15-37); SGPT/ALT 25 U/L (13-61); SODIUM 131 mmol/L (136-145)
[2018-05-23] MEDS ORDERED: valACYclovir HCL 1000 MG TABLET PO ONE (15:06)
[2018-05-23] MEDS ORDERED: CEPHALEXIN MONOHYDRATE 500 MG CAPSULE (UD) PO ONE (15:08)
[2018-05-23] MEDS ORDERED: CEPHALEXIN MONOHYDRATE 500 MG CAPSULE (UD) ONE (15:36)
[2018-05-23] MEDS ORDERED: valACYclovir HCL 500 MG TABLET (FP) ONE (15:37)
--- NOTE | 2018-05-23 15:49 | EKG ---
Test Reason : Blood Pressure : / mmHG Vent. Rate : 070 BPM Atrial Rate : 070 BPM P-R Int : 194 ms QRS Dur : 092 ms QT Int : 404 ms P-R-T Axes : 064 -10 060 degrees QTc Int : 436 ms NORMAL SINUS RHYTHM CANNOT RULE OUT INFERIOR INFARCT (CITED ON OR BEFORE 20-MAR-2014) ABNORMAL ECG WHEN COMPARED WITH ECG OF 09-NOV-2016 02:20, PREMATURE ATRIAL COMPLEXES ARE NO LONGER PRESENT VENT. RATE HAS DECREASED BY 34 BPM Confirmed by SUSU GALEANA MD ([id number]) on 05/23/2018 3:49:07 PM Referred By: Confirmed By:SUSU GALEANA MD
[2018-05-23 16:05] VITALS: BP 118/60; PULSE 70; TEMP 98.2
== END 2018-05-23 16:39 | disposition home or self-care (01) ==
LOC: JER 12:29
PROC: 3E0337Z Introduction of Electrolytic and Water Balance Substance into Peripheral Vein, Percutaneous Approach (ICD-10-PCS; principal; 2018-05-23)
DX: A08.4 Viral intestinal infection, unspecified (principal); B97.89 Other viral agents as the cause of diseases classified elsewhere; B02.9 Zoster without complications; I10 Essential (primary) hypertension; E11.9 Type 2 diabetes mellitus without complications; Z79.84 Long term (current) use of oral hypoglycemic drugs; K21.9 Gastro-esophageal reflux disease without esophagitis; Z87.39 Personal history of other diseases of the musculoskeletal system and connective tissue; Z96.643 Presence of artificial hip joint, bilateral
CPT/HCPCS: 36415; 80053; 85025; 93005; 93010; 99282-25

== ENCOUNTER 2018-07-17 09:49 | Emergency (ER) | payer OTHER ==
[2018-07-17 10:09] VITALS: TEMP 98; BMI 23.4
[2018-07-17] MEDS ORDERED: oxyCODONE HCL 5 MG TABLET PO ONE (10:16)
[2018-07-17] MEDS ORDERED: ACETAMINOPHEN 325 MG TABLET (FP) PO ONE (10:17)
[2018-07-17] MEDS ORDERED: ACETAMINOPHEN 325 MG TABLET (FP) ONE (10:23)
[2018-07-17] MEDS ORDERED: oxyCODONE HCL 5 MG TABLET ONE (10:23)
--- NOTE | 2018-07-17 10:23 | PDOC ---
History of Present Illness - General Chief Complaint: Pain, Acute Stated Complaint: HIP PAIN Time Seen by Provider: 07/17/18 09:52 History Source: Patient Exam Limitations: No Limitations - History of Present Illness Initial Comments: 07/17/18 10:17 Patient is a 72 year old female with history of bilateral hip replacements ( [facility] early ), osteoporosis, hypertension, hyperlipidema, diabetes mellitus (not insulin dependent) presents with complaint of left hip pain. Patient endorses this morning hse was sitting on her bed, and as she bent down to scratch her leg, she felt sharp pain and felt that her "hip had come loose". Patient denies fall, loss of consciousness, or any trauma. She denies weakness, or paresthesias of bilateral upper or lower extremities, however is hesitant to move her left hip due to pain. She denies subjective fevers, chills, shortness of breath, chest pain, palpitations, abdominal pain, nausea, vomiting, diarrhea, melena, hematochezia, dysuria, hematuria. PMH: osteoporosis, hypertension, hyperlipidema, diabetes mellitus PSH: bilateral hip replacements Family History Mother: DM Father: patient denies significant medical history Social: Lives with her niece. 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 She ambulates at baseline with cane and walker. Patient endorses smoking one pack per week, ongoing for past 15 years. Past History - Travel Traveled outside of the country in the last 30 days: No - Past Medical History Allergies/Adverse Reactions: Allergies Allergy/AdvReac Type Severity Reaction Status Date / Time prochlorperazine edisylate Allergy Intermediate tongue Verified 07/17/18 09:59 [From Compazine] gets heavy prochlorperazine maleate AdvReac Intermediate tongue Verified 07/17/18 09:59 [From Compazine] gets heavy Home Medications: Ambulatory Orders Aspirin [ASA -] 81 mg PO DAILY 05/14/16 Gabapentin 600 mg PO TID 05/14/16 Metformin HCl [Glucophage] 1,000 mg PO BID 05/14/16 Oxycodone HCl 10 mg PO PRN 05/14/16 Valsartan [Diovan] 160 mg PO DAILY 05/14/16 Amlodipine Besylate [Norvasc -] 5 mg PO DAILY #30 tablet 11/11/16 Cephalexin [Keflex] 500 mg PO QID #25 capsule 05/23/18 Valacyclovir HCl [Valtrex] 1,000 mg PO Q12H #20 tablet 05/23/18 Atorvastatin Ca [Lipitor] 20 mg NR ONCE 07/17/18 Furosemide 20 mg PO ONCE 07/17/18 Hydrochlorothiazide [Hctz -] 12.5 mg PO DAILY 07/17/18 Losartan Potassium 100 mg PO ONCE 07/17/18 Anemia: No Asthma: No Cancer: No Cardiac Disorders: No CVA: No COPD: No CHF: No Dementia: No Diabetes: Yes GI Disorders: Yes (gerd) Disorders: No HTN: Yes Hypercholesterolemia: Yes Liver Disease: No Seizures: No Thyroid Disease: No - Surgical History Abdominal Surgery: No Appendectomy: No Cardiac Surgery: No Cholecystectomy: No Lung Surgery: No Neurologic Surgery: No Orthopedic Surgery: Yes (BILATERAL HIP REPLACEMENT RIGHT SHOULDER) - Family Disease History Family Disease History: Diabetes: Mother - Immunization History Td Vaccination: (unknown) Immunization Up to Date: Yes - Suicide/Smoking/Psychosocial Hx Smoking Status: Yes Smoking History: Current every day smoker Years of Tobacco Use: 15 Have you smoked in the past 12 months: Yes Number of Cigarettes Smoked Daily: 2 If you are a former smoker, when did you quit?: yrs ago Cigars Per Day: 0 Hx Alcohol Use: No Drug/Substance Use Hx: No Substance Use Type: None Hx Substance Use Treatment: No Patient Lives Alone: No Lives with/in: niece Review of Systems - Review of Systems Able to Perform ROS?: Yes Is the patient limited Sami proficient: Yes Constitutional: No: Chills, Diaphoresis, Fever HEENTM: No: Recent change in vision, Throat Pain, Throat Swelling, Difficulty Swallowing Respiratory: No: Cough, Orthopnea, Shortness of Breath, Stridor, Wheezing, Productive cough Cardiac (ROS): No: Chest Pain, Palpitations, Syncope ABD/GI: No: Abdominal Distended, Blood Streaked Bowels, Constipated, Diarrhea, Tarry Stools Musculoskeletal: No: Joint Pain (left hip) Neurological: No: Headache, Paresthesia, Weakness *Physical Exam - Vital Signs Last Vital Signs Temp Pulse Resp BP Pulse Ox 98.0 F 97 H 19 152/93 98 07/17/18 09:59 07/17/18 09:59 07/17/18 09:59 07/17/18 09:59 07/17/18 09:59 - Physical Exam General Appearance: Yes: Appropriately Dressed. No: Apparent Distress HEENT: positive: EOMI, HOLGER. negative: Scleral Icterus (R), Scleral Icterus (L) , Pharyngeal Erythema, Tonsillar Exudate Neck: positive: Trachea midline, Supple. negative: Rigid, Stridor, Lymphadenopathy (R), Lymphadenopathy (L) Respiratory/Chest: positive: Lungs Clear, Normal Breath Sounds. negative: Respiratory Distress, Crackles, Rales, Rhonchi, Stridor, Wheezing Cardiovascular: positive: Regular Rhythm, Regular Rate, S1, S2. negative: Murmur Gastrointestinal/Abdominal: positive: Soft. negative: Guarding, Rebound, Tenderness, Hepatomegaly Musculoskeletal: positive: Decreased Range of Motion (left hip; due to pain) Extremity: positive: Other (sensation grossly intact bilateral upper and lower extremities. ) Integumentary: positive: Dry, Warm Neurologic: positive: phys ther II-XII NML intact, Fully Oriented, Alert, Normal Mood/ Affect ED Treatment Course - LABORATORY CBC & Chemistry Diagram: 07/17/18 11:42 07/17/18 11:42 - RADIOLOGY Radiology Studies Ordered: Category Date Time Status FEMUR-LEFT [RAD] Stat Radiology 07/17/18 10:15 Ordered HIP & PELVIS-LEFT [RAD] Stat Radiology 07/17/18 10:15 Ordered Medical Decision Making - Medical Decision Making 07/17/18 10:28 Patient is a 72 year old female with history of bilateral hip replacements ( [facility] early ), osteoporosis, hypertension, hyperlipidema, diabetes mellitus (not insulin dependent) presents with complaint of left hip pain after bending down earlier this morning. Denies fall, loss of consciousness, or any trauma. Will obtain radiograph left hip, left pelvis, left femur to rule out dislocation or fracture. Pain control with Oxycodone- Acetaminophen (5-325mg) PO 07/17/18 11:04 Radiograph left hip reveals superior left femoral head dislocation. 07/17/18 12:51 Case discussed with orthopedic surgery who state patient will likely need open reduction, and given her extensive orthopedic surgical history, she is to be transferred to [facility], where her surgeries were originally performed. 07/17/18 13:[address] Vogel. Will transfer patient to [facility] for higher level of care. *DC/Admit/Observation/Transfer Diagnosis at time of Disposition: Hip dislocation, left - Discharge Dispostion Disposition: TRANSFER ACUTE CARE/OTHER HOSP Decision to Admit order: Yes - Referrals Referrals: Gina Fofana MD [Primary Care Provider] - - Patient Instructions - Post Discharge Activity
--- NOTE | 2018-07-17 10:44 | PDOC ---
Documentation entered by Cyndi Card SCRIBE, acting as scribe for Karissa Colon DO. Karissa Colon DO: This documentation has been prepared by the scribe, Cyndi Card SCRIBE, under my direction and personally reviewed by me in its entirety. I confirm that the documentation accurately reflects all work, treatment, procedures, and medical decision making performed by me. Attending Attestation - Resident Resident Name: Rafal Lynch - ED Attending Attestation I have performed the following: I have examined & evaluated the patient, The case was reviewed & discussed with the resident, I agree w/resident's findings & plan, Exceptions are as noted - HPI HPI: 07/17/18 11:39 The patient is a 72-year-old female, with a past medical history of bilateral hip replacements ([facility] - 1999s), HTN, HLD, NIDDM, osteoporosis, who presents to the ED with LT hip pain. The patient states that she was sitting on her bed and bent down to scratch her leg when she suddenly developed sharp pain. She is unable to move her hip due to the pain. She denies any weakness or changes in sensation of all extremities. Denies any fevers, chills, nausea, vomiting, diarrhea, constipation, and abdominal pain. Denies any chest pain or shortness of breath. Allergies: prochlorperazine edisylate, prochlorperazine maleate. Social History: None reported. Surgical History: B/L hip replacements. PCP: Dr. Fofana - Physicial Exam PE: 07/17/18 11:39 GENERAL: Awake, alert, and fully oriented, in no acute distress HEAD: No signs of trauma EYES: PERRLA, EOMI, sclera anicteric, conjunctiva clear ENT: Auricles normal inspection, hearing grossly normal, nares patent, oropharynx clear without exudates. Moist mucosa NECK: Normal ROM, supple, no lymphadenopathy, JVD, or masses LUNGS: Breath sounds equal, clear to auscultation bilaterally. No wheezes, and no crackles HEART: Regular rate and rhythm, normal S1 and S2, no murmurs, rubs or gallops ABDOMEN: Soft, nontender, normoactive bowel sounds. No guarding, no rebound. No masses EXTREMITIES: (+)LT hip deformity at the lateral aspect, patient unable to move left hip due to pain, RT hip limited motion due to pain which she has at baseline. No edema. No clubbing or cyanosis. No cords, erythema. NEUROLOGICAL: Cranial nerves II through XII grossly intact. Normal speech, normal gait SKIN: Warm, Dry, normal turgor, no rashes or lesions noted - Medical Decision Making 07/17/18 10:35 I, Dr. Karissa Colon, DO, attest that this document has been prepared under my direction and personally reviewed by me in its entirety. I further attest, that it accurately reflects all work, treatment, procedures and medical decision -making performed by me. 07/17/18 10:35 a/p: 72yo female with acute L hip pain and inability to move the L hip -hx of b/l hip replacements with revisions multiple times at [facility] -sensation intact, muscle strength intact, pedal pulses intact -suspect L hip dislocation -will obtain xrays -will monitor and reassess -percocet for pain 07/17/18 11:20 pt with a dislocated L hip prosthesis 07/17/18 11:[address] toro/hammad 07/17/18 12:33 dr. cueva at the bedside who states he dr. stein will see the patient in consult for poss relocation vs revision of hip case discussed with Dr. Iglesias who accepts pt to service Heart Score/ECG Review - ECG Intrepretation Comment:: 07/17/18 11:23 sinus at 97, q waves inferiorly which are age indeterminate, no acute st/t wave findings
[2018-07-17] MEDS ORDERED: PROPOFOL 200 MG/20 ML VIAL IVPUSH ONE (11:18)
[2018-07-17] MEDS ORDERED: SODIUM CHLORIDE 1,000 ML IV STA ×2 (11:19→11:36)
[2018-07-17] MEDS ORDERED: ONDANSETRON 4 MG/2 ML VIAL IVPUSH ONE (11:19)
[2018-07-17 11:46] LABS: HEMATOCRIT 35.3 % (32.4-45.2); HEMOGLOBIN 11.7 GM/dL (10.7-15.3); MCH 31.4 pg (25.7-33.7); MCHC 33.2 g/dl (32.0-36.0); MEAN CELL VOLUME 94.5 fl (80-96); MEAN PLT VOLUME 6.8 fl (7.5-11.1); PLATELET COUNT 448 K/MM3 (134-434); RBC 3.74 M/mm3 (3.60-5.2); RDW 17.6 % (11.6-15.6); WHITE BLOOD COUNT 7.1 K/mm3 (4.0-10.0)
[2018-07-17] MEDS ORDERED: morphine CARPU-JECT 2 MG/1 ML DISP.SYRIN IVPUSH ONE (12:02)
[2018-07-17 12:04] LABS: INR 0.98 (0.83-1.09); PROTHROMBIN TIME (PATIENT) 11.6 SEC (9.7-13.0)
[2018-07-17] MEDS ORDERED: MORPHINE SULFATE 2 MG/ML VIAL ONE (12:05)
[2018-07-17 12:07] LABS: ACTIVATED PTT 36.5 SECONDS (25.2-36.5)
--- NOTE | 2018-07-17 12:47 | PN ---
Progress Note (short form) - Note Progress Note: Pt seen and examined in ER. She is a 72 year old female patient who has had 6 hip surgeries, including 3 on the left. After a left THR she underwent 2 left hip revisions. The last revision was 15 years ago and she has not dislocated since then. This morning she was sitting in chair, reached down to scratch her toe, and she dislocated her left hip. She was unable to ambulate, and had significant pain. Brought to ER by ambulance. PE Pt seen in ER. She is in NAD, alert and oriented x 3. LLE looks ok, no gross deformity, mildly externally rotated but not severe. No shortening of left leg. LLE is grossly NVI. Nl sensation throughout. Nl/good ROM with no pain at the left ankle, foot, toes in all planes. Good flexion and extension of the left knee with mild pain in the left hip. No compromise of the skin. Xrays Of the left hip show a complex left hip replacement prosthesis, greater trochanteric cage, wires, an acetabular component with screws, and what appears to be a dislocated bipolar head, with the 2 components of the hip prosthesis dislodged. Imp 72 year old female s/p 3 left hip surgeries with a dislocated and dislodged bipolar hip prosthesis. Plan The dislocated hip prosthesis is not reducible in the ER. I spoke with ER Attending and family, as well as the only Orthopedic team who performs this surgery in this hospital, and they are deferring to the original surgical team who performed the left hip surgeries at the [facility]. The ER staff will reach out to the transfer team at [facility] and arrange a direct transfer.
[2018-07-17 12:59] LABS: ALBUMIN 3.6 g/dl (3.4-5.0); BILIRUBIN,TOTAL 0.2 mg/dL (0.2-1); CALCIUM 9.6 mg/dL (8.5-10.1); CREATININE 0.5 mg/dL (0.55-1.3); POTASSIUM 3.9 mmol/L (3.5-5.1)
[2018-07-17 13:51] VITALS: BP 106/67; PULSE 100
--- NOTE | 2018-07-18 10:23 | PN ---
Progress Note (short form) - Note Progress Note: Orthopedic recommendation is the same, she needs to be transferred to [facility] for definitive orthopedic treatment. That is where she had her previous 3 left hip surgeries, plus there is no one at this hospital who performs the surgery she needs.
--- NOTE | 2018-07-18 14:28 | EKG ---
Test Reason : Blood Pressure : / mmHG Vent. 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
== END 2018-07-17 13:51 | disposition short-term general hospital (02) ==
LOC: JER 09:49 → JERBED 12:36 → UNDOADMIN 12:36 → JER 13:51
PROC: 3E0337Z Introduction of Electrolytic and Water Balance Substance into Peripheral Vein, Percutaneous Approach (ICD-10-PCS; principal; 2018-07-17)
PROC: 3E033NZ Introduction of Analgesics, Hypnotics, Sedatives into Peripheral Vein, Percutaneous Approach (ICD-10-PCS; 2018-07-17)
PROC: 3E033GC Introduction of Other Therapeutic Substance into Peripheral Vein, Percutaneous Approach (ICD-10-PCS; 2018-07-17)
DX: S73.005A Unspecified dislocation of left hip, initial encounter (principal); X58.XXXA Exposure to other specified factors, initial encounter; Y93.89 Activity, other specified; Y92.009 Unspecified place in unspecified non-institutional (private) residence as the place of occurrence of the external cause; Z96.643 Presence of artificial hip joint, bilateral; Q78.8 Other specified osteochondrodysplasias; I10 Essential (primary) hypertension; E78.5 Hyperlipidemia, unspecified; E11.9 Type 2 diabetes mellitus without complications
CPT/HCPCS: 36415; 71045-TC-FY; 73523-TC-FY; 73552-TC-LT-FY; 80053; 85027; 85610; 85730; 93005; 93010; 99285-25; J7030

== ENCOUNTER 2023-03-30 15:23 | Emergency (ER) | payer OTHER ==
[2023-03-30 15:31] VITALS: BP 121/65; PULSE 70; RESP 16; TEMP 97.5; BMI 26.6
[2023-03-30 15:58] LABS: EPI CELLS 5 /uL (0-25.1); HYALINE CASTS 0 /uL (0-3.1); URINE APPEARANCE TURBID; URINE BACTERIA 5793 /uL (0-1359); URINE BILIRUBIN NEGATIVE (NEGATIVE); URINE COLOR YELLOW; URINE GLUCOSE (UA) NEGATIVE (NEGATIVE); URINE KETONE NEGATIVE (NEGATIVE); URINE LEUK ESTERASE 3+ (NEGATIVE); URINE NITRITE POSITIVE (NEGATIVE); URINE PROTEIN TRACE (NEGATIVE); URINE UROBILINOGEN 0.2 mg/dL (0.2-1.0); URINE WBC 3088 /uL (0-25.8)
== END 2023-03-30 17:17 | disposition home or self-care (01) ==
LOC: JER 15:23
DX: R35.0 Frequency of micturition (principal); N39.0 Urinary tract infection, site not specified
CPT/HCPCS: 81003; 87086; 87186; 99283-25

== ENCOUNTER 2023-07-03 01:24 | Inpatient (IN) | payer OTHER ==
[2023-07-03] MEDS ORDERED: ACETAMINOPHEN INJECTION 100 ML IVPB ONE ×2 (02:17→18:40)
[2023-07-03] MEDS: ACETAMINOPHEN 1000 MG/100 ML BAG IVPB ONE (02:47)
[2023-07-03 02:48] LABS: BASO % 0.5 % (0-2.0); EOS % 1.3 % (0-4.5); HEMATOCRIT 31.1 % (32.4-45.2); HEMOGLOBIN 9.9 GM/dL (10.7-15.3); LYMPH % 10.2 % (8-40); MCH 27.2 pg (25.7-33.7); MCHC 31.7 g/dl (32.0-36.0); MEAN CELL VOLUME 85.6 fl (80-96); MEAN PLT VOLUME 6.9 fl (7.5-11.1); MONO % 1.8 % (3.8-10.2); NEUT % 86.2 % (42.8-82.8); PLATELET COUNT 338 10^3/uL (134-434); RBC 3.63 M/mm3 (3.60-5.2); RDW 20.2 % (11.6-15.6); WHITE BLOOD COUNT 12.4 K/mm3 (4.0-10.0)
[2023-07-03 02:58] LABS: PROTHROMBIN TIME (PATIENT) 11.3 SEC (9.7-13.0)
[2023-07-03 03:01] LABS: ACTIVATED PTT 37.7 SECONDS (25.2-36.5)
[2023-07-03] MEDS: SODIUM CHLORIDE 1,905 ML IV ONE (03:02)
[2023-07-03 03:03] LABS: EPI CELLS 1 /uL (0-25.1); HYALINE CASTS 0 /uL (0-3.1); URINE APPEARANCE CLOUDY; URINE BACTERIA 8713 /uL (0-1359); URINE BILIRUBIN NEGATIVE (NEGATIVE); URINE COLOR YELLOW; URINE GLUCOSE (UA) NEGATIVE (NEGATIVE); URINE KETONE NEGATIVE (NEGATIVE); URINE LEUK ESTERASE 3+ (NEGATIVE); URINE NITRITE NEGATIVE (NEGATIVE); URINE PROTEIN 2+ (NEGATIVE); URINE RBC 1088 /uL (0-23.9); URINE UROBILINOGEN 0.2 mg/dL (0.2-1.0); URINE WBC 1747 /uL (0-25.8)
[2023-07-03] MEDS ORDERED: CEFTRIAXONE 1 GM/50 ML BAG ONE (03:10)
[2023-07-03 03:28] LABS: ALBUMIN 3.2 g/dl (3.4-5.0); BILIRUBIN,TOTAL 0.4 mg/dL (0.2-1); BLOOD UREA NITROGEN 28.7 mg/dL (7-18); CALCIUM 9.3 mg/dL (8.5-10.1); CREATININE 1.4 mg/dL (0.55-1.3); POTASSIUM 4.8 mmol/L (3.5-5.1); TOT PROT 7.4 g/dl (6.4-8.2)
[2023-07-03 05:37] LABS: LACTIC ACID 2.8 mmol/L (0.4-2.0)
[2023-07-03] MEDS: ASPIRIN 81 MG CHEWABLE TABLETS PO SCH (10:45)
[2023-07-03] MEDS: ACETAMINOPHEN 1000 MG/100 ML BAG IVPB PRN ×2 (11:40→18:42)
[2023-07-03] MEDS: LACTATED RINGERS SOLUTION 1,000 ML/1,000 ML INFUS.BAG IV SCH (12:27)
[2023-07-03] MEDS: SOLIFENACIN SUCCINATE 5 MG TAB PO SCH (16:47)
[2023-07-03] MEDS: GABAPENTIN 300 MG CAPSULE PO SCH ×2 (16:48→22:12)
[2023-07-03] MEDS ORDERED: CEFOXITIN SODIUM 1 GM IVPB ONE (17:13)
[2023-07-03] MEDS ORDERED: ceFAZolin SODIUM 1 GM VIAL ONE (17:15)
[2023-07-03] MEDS ORDERED: PROPOFOL 20 ML ONE (17:18)
[2023-07-03] MEDS ORDERED: FENTANYL CITRATE/PF 50 MCG/ML VIAL ONE (17:18)
[2023-07-03] MEDS ORDERED: cefTRIAXone SODIUM 1 GM VIAL ONE (17:19)
[2023-07-03] MEDS: cefTRIAXone SODIUM 1 GM VIAL IVPB ONE (17:35)
[2023-07-03] MEDS ORDERED: ONDANSETRON 4 MG/2 ML VIAL IVPUSH PRN (18:15)
[2023-07-03] MEDS ORDERED: LATANOPROST 0.005% OPHTH SOLN 2.5ML BOTTLE OU SCH (22:00)
[2023-07-03] MEDS ORDERED: CEFTRIAXONE 1 GM in DEXTROSE 5%-WATER - 50 ML IVPB SCH ×2 (22:00)
[2023-07-03] MEDS ORDERED: HEPARIN NA (PORCINE) 5,000 UNITS/ML 1ML VIAL SQ SCH (22:00)
[2023-07-03] MEDS ORDERED: ATORVASTATIN CA 20 MG TABLET (FP) PO SCH (22:00)
[2023-07-03] MEDS: LACTATED RINGERS SOLUTION 1,000 ML IV SCH (22:11)
[2023-07-03] MEDS: ATORVASTATIN CA 20 MG TABLET (FP) PO SCH (22:12)
[2023-07-03] MEDS: HEPARIN NA (PORCINE) 5,000 UNITS/ML 1ML VIAL SQ SCH (22:12)
[2023-07-03] MEDS: LATANOPROST 0.005% OPHTH SOLN 2.5ML BOTTLE OU SCH (22:13)
[2023-07-03] MEDS: INSULIN ASPART SLIDING SCALE (NOVOLOG) 1 VIAL SQ SCH (22:30)
[2023-07-04] MEDS ORDERED: INSULIN ASPART SLIDING SCALE (NOVOLOG) 1 VIAL SQ SCH ×2 (06:00→14:40)
[2023-07-04] MEDS: INSULIN ASPART SLIDING SCALE (NOVOLOG) 1 VIAL SQ SCH (06:25)
[2023-07-04] MEDS: CEFTRIAXONE 1 GM in DEXTROSE 5%-WATER - 50 ML IVPB SCH (09:27)
[2023-07-04] MEDS: amLODIPine BESYLATE 5 MG TABLET (FP) PO SCH (09:27)
[2023-07-04] MEDS: ASPIRIN 81 MG CHEWABLE TABLETS PO SCH (09:27)
[2023-07-04] MEDS: SOLIFENACIN SUCCINATE 5 MG TAB PO SCH (09:27)
[2023-07-04 09:52] LABS: BASO % 0.5 % (0-2.0); EOS % 0.7 % (0-4.5); HEMATOCRIT 26.5 % (32.4-45.2); HEMOGLOBIN 8.2 GM/dL (10.7-15.3); LYMPH % 12.6 % (8-40); MCH 26.6 pg (25.7-33.7); MCHC 31.1 g/dl (32.0-36.0); MEAN CELL VOLUME 85.4 fl (80-96); MEAN PLT VOLUME 7.9 fl (7.5-11.1); MONO % 5.6 % (3.8-10.2); NEUT % 80.6 % (42.8-82.8); PLATELET COUNT 266 10^3/uL (134-434); RDW 20.5 % (11.6-15.6); WHITE BLOOD COUNT 12.8 K/mm3 (4.0-10.0)
[2023-07-04 10:08] LABS: POTASSIUM 4.3 mmol/L (3.5-5.1)
[2023-07-04 10:14] LABS: CALCIUM 8.3 mg/dL (8.5-10.1)
[2023-07-04 10:15] LABS: BLOOD UREA NITROGEN 32.2 mg/dL (7-18)
[2023-07-04 10:18] LABS: CREATININE 1.8 mg/dL (0.55-1.3)
[2023-07-04 10:31] LABS: ANISOCYTOSIS 1+; MACROCYTOSIS 0
[2023-07-05] MEDS ORDERED: INSULIN (NOVOLOG) ASPART 100 UNITS/ML 10ML VIAL ONE (05:44)
[2023-07-05 08:32] LABS: BASO % 0.8 % (0-2.0); EOS % 3.5 % (0-4.5); HEMATOCRIT 22.4 % (32.4-45.2); HEMOGLOBIN 7.4 GM/dL (10.7-15.3); LYMPH % 21.1 % (8-40); MCH 27.4 pg (25.7-33.7); MCHC 32.8 g/dl (32.0-36.0); MEAN CELL VOLUME 83.5 fl (80-96); MEAN PLT VOLUME 7.4 fl (7.5-11.1); NEUT % 66.6 % (42.8-82.8); PLATELET COUNT 249 10^3/uL (134-434); RBC 2.69 M/mm3 (3.60-5.2); RDW 20.2 % (11.6-15.6); WHITE BLOOD COUNT 9.2 K/mm3 (4.0-10.0)
[2023-07-05 08:43] LABS: CALCIUM 8.3 mg/dL (8.5-10.1)
[2023-07-05 08:44] LABS: BLOOD UREA NITROGEN 28.2 mg/dL (7-18); MAGNESIUM 1.9 mg/dL (1.8-2.4)
[2023-07-05 08:47] LABS: CREATININE 1.4 mg/dL (0.55-1.3)
[2023-07-05 08:48] LABS: BILIRUBIN,TOTAL 0.5 mg/dL (0.2-1)
[2023-07-05 08:52] LABS: TOT PROT 5.4 g/dl (6.4-8.2)
[2023-07-06] MEDS ORDERED: INSULIN (NOVOLOG) ASPART 100 UNITS/ML 10ML VIAL ONE (05:26)
[2023-07-06 09:21] LABS: BASO % 0.8 % (0-2.0); EOS % 4.5 % (0-4.5); HEMOGLOBIN 7.9 GM/dL (10.7-15.3); LYMPH % 24.1 % (8-40); MCH 27.7 pg (25.7-33.7); MCHC 33.2 g/dl (32.0-36.0); MEAN CELL VOLUME 83.7 fl (80-96); MEAN PLT VOLUME 7.7 fl (7.5-11.1); MONO % 7.9 % (3.8-10.2); NEUT % 62.7 % (42.8-82.8); PLATELET COUNT 260 10^3/uL (134-434); RBC 2.86 M/mm3 (3.60-5.2); RDW 19.9 % (11.6-15.6); WHITE BLOOD COUNT 7.3 K/mm3 (4.0-10.0)
[2023-07-06] MEDS: ACETAMINOPHEN 325 MG TABLET (FP) PO PRN (09:24)
[2023-07-06 09:44] LABS: POTASSIUM 4.3 mmol/L (3.5-5.1)
[2023-07-06 09:47] LABS: ALBUMIN 2.2 g/dl (3.4-5.0); BLOOD UREA NITROGEN 23.7 mg/dL (7-18); CALCIUM 8.3 mg/dL (8.5-10.1); MAGNESIUM 1.9 mg/dL (1.8-2.4)
[2023-07-06 09:50] LABS: CREATININE 1.3 mg/dL (0.55-1.3)
[2023-07-06 09:52] LABS: BILIRUBIN,TOTAL 0.4 mg/dL (0.2-1); TOT PROT 5.8 g/dl (6.4-8.2)
[2023-07-07 09:21] LABS: BASO % 1.2 % (0-2.0); EOS % 6.2 % (0-4.5); HEMATOCRIT 24.7 % (32.4-45.2); LYMPH % 33.1 % (8-40); MCH 27.6 pg (25.7-33.7); MCHC 32.6 g/dl (32.0-36.0); MEAN CELL VOLUME 84.8 fl (80-96); MONO % 8.4 % (3.8-10.2); NEUT % 51.1 % (42.8-82.8); PLATELET COUNT 298 10^3/uL (134-434); RBC 2.91 M/mm3 (3.60-5.2); RDW 19.9 % (11.6-15.6); WHITE BLOOD COUNT 6.5 K/mm3 (4.0-10.0)
[2023-07-07 09:39] LABS: POTASSIUM 4.2 mmol/L (3.5-5.1)
[2023-07-07 09:51] LABS: ALBUMIN 2.4 g/dl (3.4-5.0); BLOOD UREA NITROGEN 24.2 mg/dL (7-18); MAGNESIUM 1.8 mg/dL (1.8-2.4)
[2023-07-07 09:52] LABS: CALCIUM 8.7 mg/dL (8.5-10.1)
[2023-07-07 09:54] LABS: CREATININE 1.4 mg/dL (0.55-1.3)
[2023-07-07 09:55] LABS: BILIRUBIN,TOTAL 0.4 mg/dL (0.2-1); TOT PROT 6.1 g/dl (6.4-8.2)
[2023-07-08 08:50] LABS: BASO % 0.9 % (0-2.0); EOS % 6.6 % (0-4.5); HEMATOCRIT 24.6 % (32.4-45.2); HEMOGLOBIN 7.8 GM/dL (10.7-15.3); LYMPH % 39.8 % (8-40); MCH 27.3 pg (25.7-33.7); MCHC 31.9 g/dl (32.0-36.0); MEAN CELL VOLUME 85.8 fl (80-96); MONO % 9.3 % (3.8-10.2); NEUT % 43.4 % (42.8-82.8); PLATELET COUNT 298 10^3/uL (134-434); RBC 2.86 M/mm3 (3.60-5.2); RDW 20.4 % (11.6-15.6)
[2023-07-08 09:15] LABS: POTASSIUM 4.4 mmol/L (3.5-5.1)
[2023-07-08 09:25] LABS: ALBUMIN 2.4 g/dl (3.4-5.0); BLOOD UREA NITROGEN 23.3 mg/dL (7-18); CALCIUM 8.9 mg/dL (8.5-10.1)
[2023-07-08 09:28] LABS: CREATININE 1.2 mg/dL (0.55-1.3)
[2023-07-08 09:29] LABS: BILIRUBIN,TOTAL 0.4 mg/dL (0.2-1); TOT PROT 6.2 g/dl (6.4-8.2)
[2023-07-08] MEDS ORDERED: DOCUSATE SODIUM 100 MG CAPSULE (FP) PO PRN (16:06)
[2023-07-08 21:51] VITALS: RESP 18
[2023-07-09 11:02] LABS: BASO % 0.8 % (0-2.0); EOS % 6.6 % (0-4.5); HEMATOCRIT 22.3 % (32.4-45.2); HEMOGLOBIN 7.1 GM/dL (10.7-15.3); LYMPH % 28.3 % (8-40); MCH 26.9 pg (25.7-33.7); MEAN CELL VOLUME 84.2 fl (80-96); MEAN PLT VOLUME 7.8 fl (7.5-11.1); NEUT % 57.3 % (42.8-82.8); PLATELET COUNT 396 10^3/uL (134-434); RBC 2.65 M/mm3 (3.60-5.2); RDW 19.9 % (11.6-15.6); WHITE BLOOD COUNT 8.6 K/mm3 (4.0-10.0)
[2023-07-09 11:18] LABS: POTASSIUM 4.6 mmol/L (3.5-5.1)
[2023-07-09 11:22] LABS: BLOOD UREA NITROGEN 26.3 mg/dL (7-18); CALCIUM 8.9 mg/dL (8.5-10.1)
[2023-07-09 11:25] LABS: CREATININE 1.4 mg/dL (0.55-1.3)
[2023-07-09 14:28] VITALS: BMI 31.3
[2023-07-10 05:51] VITALS: BP 135/64; PULSE 57; TEMP 98.4
[2023-07-10] MEDS: CEFUROXIME AXETIL 500 MG TABLET PO SCH (09:53)
== END 2023-07-10 11:36 | disposition home health service (06) | DRG 872 ==
LOC: JER 01:24 → JERBED 04:27 → J8W 12:32
PROVIDERS: ADMIT Internal Medicine; ATTEND Nurse Practitioner Family
PROC: BT1DZZZ Fluoroscopy of Right Kidney, Ureter and Bladder (ICD-10-PCS; principal; 2023-07-03 17:00)
PROC: 0TJB8ZZ Inspection of Bladder, Via Natural or Artificial Opening Endoscopic (ICD-10-PCS; 2023-07-03 17:00)
DX: A41.50 Gram-negative sepsis, unspecified (principal); N13.6 Pyonephrosis; E87.20 Acidosis, unspecified; N13.4 Hydroureter; N12 Tubulo-interstitial nephritis, not specified as acute or chronic; R33.9 Retention of urine, unspecified; E11.9 Type 2 diabetes mellitus without complications; K21.9 Gastro-esophageal reflux disease without esophagitis
CPT/HCPCS: 0241U-QW; 36415; 71045-TC-FY; 74176-TC; 76000-TC-FY; 80048; 80053; 81003; 82728; 82962; 83540; 83550; 83605; 83615; 83735; 84484; 85025; 85610; 85730; 87040; 87081; 87086; 87186; 93005; 93010; 93306-TC; 94760; 97116-GP; 97161-GP; 99285-25; C1758; J0131; J1644